=== PATIENT | male | born 2005 | race Caucasian/White ===

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

== ENCOUNTER 2024-04-23 22:41 | Emergency (ER) | payer MEDICAID, SELFPAY ==
[2024-04-23] VITALS (10 sets, daily range): BP systolic 104–125; BP diastolic 61–69; PULSE 65–82; RESP 14–22; TEMP 36.6; O2SAT 97–99
--- NOTE | 2024-04-23 22:45 | DI.RAD_ITS ---
Exam(s) XR CHEST 2V PA LATERAL EXAM: XR CHEST 2V PA LATERAL CLINICAL HISTORY: chest pain. TECHNIQUE: 2D digital imaging was performed. COMPARISON: No exams were available for comparison FINDINGS: 2 views: Heart size is normal. The mediastinum is not widened. Lungs are clear. No infiltrates nor pleural effusions. IMPRESSION: No acute pulmonary findings. DATA REPOSITORY: RADIATION DOSE DELIVERED:
--- NOTE | 2024-04-23 22:45 | RT.EKG_ITS ---
APPROVED REPORT Exam: Resting ECG Reason for Exam: chest pain Patient Location: E HR:67 bpm ECG Measurements Heart Rate 67 AXIS NC 189 P 50 QRSd 83 QRS 66 QT 394 T 45 QTc 416 Conclusion Sinus rhythm... V-rate 60- [address] segment or t wave abnormalities to suggest occlusive KS
--- NOTE | 2024-04-23 23:07 | ED.GENADUL_ITS ---
Discharge Plan Disposition Patient Disposition: Home Condition: Good Discharge Details Clinical Impression: Chest pain [facility] Provider: Apple Harris Home Meds and New Rx's Prescriptions: No Action No Known Home Meds Discharge Instructions Instructions: Chest Pain, Adult ED Additional Instructions: Tylenol and ibuprofen over the counter for pain; follow the directions on the bottle. Call your primary care doctor on Friday to schedule an appointment for early next week to followup on your visit here. At that visit mention that your potassium was slightly slow. Return to the emergency department for new or worsening symptoms including fever, new/different/worse chest pain, difficultly breathing, feeling like you are going to pass out, or if you have any other concerns. HPI General Mode of arrival: ambulatory . Date/Time Provider Initiated Documentation: 04/23/24 22:50 . Limitations to Documentation: no limitations . Information obtained by: patient . HPI Narrative: 19yo previously healthy male presenting for right sided chest pain. Symptoms started about 6 hours ago after he went for a run. Have been constant since then but waxing and waning in severity. Pain is dull, moderate, and worse with deep breathing. It does not radiate. Nothing seems to make it better. Some shortness of breath earlier right after the pain started that lasted about 5 minutes, but not currently. He is otherwise in his usual state of health with no fevers, chills, rash, nausea, vomiting, abdominal pain, flank pain, dysuria, hematuria, or other concerns. Related Data Home Medications ?Medication ?Instructions ?Recorded ?Confirmed Unknown [No Known Home Meds] 04/23/24 04/23/24 Allergies Allergy/AdvReac Type Severity Reaction Status Date / Time No Known Allergies Allergy Unverified 04/23/24 22:50 General Stated Complaint: Chest Pain MOY: 3 Review of Systems Narrative: see HPI Exam Narrative Exam Narrative: General: Alert, well appearing, well nourished, in no acute distress. Head: Normocephalic, atraumatic Neck: Trachea midline, ?Neck supple. Cardiac: ?RRR, no murmurs appreciated Resp: No respiratory distress. CTAB. Abd: ?Soft, non-distended, nontender. Negative Islas's. : ?No suprapubic tenderness. Extremities: ?No deformities.? No peripheral edema. Neurologic: GCS 15. ? Moves all extremities freely against gravity Course Vital Signs Vital signs: Vital Signs Temperature 36.6 C 04/23/24 22:47 Pulse 73 04/23/24 22:47 Respiratory Rate 16 04/23/24 22:47 Blood Pressure 104/61 04/23/24 22:47 Pulse Oximetry 98 04/23/24 22:47 Temperature 36.6 C 04/23/24 22:47 Pulse 73 04/23/24 22:47 Respiratory Rate 16 04/23/24 22:47 Respiratory Effort Normal, Non-Labored 04/23/24 22:49 Blood Pressure 104/61 04/23/24 22:47 Blood Pressure Position Sitting 04/23/24 22:47 Pulse Oximetry 98 04/23/24 22:47 Oxygen Delivery Method Room Air 04/23/24 22:47 Oxygen Flow Rate 0 04/23/24 22:47 Pain Level 6 04/23/24 22:47 Medical Decision Making 19yo previously healthy male presenting for right sided chest pain, waxing and waning in severity for the past 6 hours, onset after a run. Mild SOB at onset, not currently. There is a pleurtic component to the pain. No family history of early cardiac disease or sudden unexpected . Vital signs reassuring on arrival, benign physical exam. No RUQ tenderness to suggest cholecystitis/choledocoliathias/gallbladder pathology. -Tylenol for pain -EKG NSR, appropriate intervals, no ST segment or T wave abnormalities to suggest occlusive KS. -CXR independently reviewed, no focal pneumonia or pneumothorax on my view, agree with radiology read below. -Labs reviewed as below, CBC with no leukocytosis or anemia, CMP reassuring with no transaminitits, mild hypokalemia (oral replacement ordered), dimer negative, troponin negative in the setting of 6+ hours of constant pain; would not further pursue ACS/trend troponin/etc. Will add toradol. On reassessment he reports pain has improved. Vital signs remain reassuring. Discharged home; discharge instructions and return precautions were reviewed with patient who verbalized understanding. All questions were answered and he is in full agreement with the plan. Imaging Data Radiologic Study: Imaging: X-Ray Radiologist's impression: IMPRESSION: No acute findings. Lab Data Lab results reviewed: Yes I reviewed the patient's lab results. Labs: Laboratory Tests Range/Units 04/23/24 23:00 WBC (4.4-10.8) 10^3/uL 10.27 RBC (4.36-5.78) 10^6/uL 4.38 Hgb (13.5-17.5) g/dL 13.8 Hct (40.0-50.0) % 39.0 L MCV (80-95) fL 89 MCH (27.0-33.0) pg 31.5 MCHC (32.0-36.0) % 35.4 RDW (11.8-14.1) % 12.3 Plt Count (130-400) 10^3/uL 239 MPV (8.0-11.0) fL 9.8 Immature Gran % % 0.3 Neutrophils % % 59.9 Lymphocytes % % 31.2 Monocytes % % 6.4 Eosinophils % % 1.4 Basophils % % 0.8 Nucleated RBC % (0.0-0.3) % 0.0 Absolute Neutrophils (1.2-6.7) 10^3/uL 6.16 Absolute Lymphocytes (1.2-3.4) 10^3/uL 3.20 Absolute Monocytes (0.1-0.8) 10^3/uL 0.66 Absolute Eosinophils (0.0-0.7) 10^3/uL 0.14 Absolute Basophils (0.0-0.2) 10^3/uL 0.08 D-Dimer (<500) ng/mlFEU 147 Sodium (136-145) mmol/L 140 Potassium (3.5-5.1) mmol/L 3.2 L Chloride (98-107) mmol/L 104 Carbon Dioxide (21.0-32.0) mmol/L 24.5 Anion Gap (3-11) mmol/L 11.5 H BUN (7-18) mg/dL 15 Creatinine (0.70-1.30) mg/dL 0.8 Est GFR (CKD-EPI 2020) (mL/min/1.73m2) 129.93 Glucose (74-106) mg/dL 103 Calcium (8.5-10.1) mg/dL 8.6 Total Bilirubin (0.2-1.0) mg/dL 0.35 AST (15-37) U/L 23 ALT (16-63) U/L 28 Alkaline Phosphatase (46-116) U/L 78 Troponin I (< or =60) ng/L < 50 Total Protein (6.4-8.2) g/dL 7.4 Albumin (3.4-5.0) g/dL 4.0 Lipase (16-77) U/L 33 Quality:SDOH Health Related Social Needs: No Data to Display PFSH All Active Problems (Updated 04/24/24 @ 00:05 by Apple Harris MD) Chest pain (Acute) Overdose of sertraline (Acute) Depression (Chronic) Suicide attempt (Acute) Suicidal ideation (Acute) Social History Smoking/Tobacco Use Status: Never Smoking risk assessment performed?: Yes Alcohol Intake: never Drug use: Occasionally Substance use type: former substance user and marijuana Housing: house Do you feel safe at home: Yes Do you feel safe in your relationship?: Yes
[2024-04-23 23:12] LABS: Abs Immature Grans 0.03 10^3/uL (0.0-0.06); Absolute Basophil Count 0.08 10^3/uL (0.0-0.2); Absolute Eosinophil Count 0.14 10^3/uL (0.0-0.7); Absolute Monocyte Count 0.66 10^3/uL (0.1-0.8); Absolute Neutrophil Count 6.16 10^3/uL (1.2-6.7); Basophils % 0.8 %; Eosinophils % 1.4 %; HGB 13.8 g/dL (13.5-17.5); Immature Grans % 0.3 %; Lymphocytes % 31.2 %; MCH 31.5 pg (27.0-33.0); MCHC 35.4 % (32.0-36.0); MCV 89 fL (80-95); MPV 9.8 fL (8.0-11.0); Monocytes % 6.4 %; Neutrophils % 59.9 %; Platelet Count 239 10^3/uL (130-400); RBC 4.38 10^6/uL (4.36-5.78); RDW 12.3 % (11.8-14.1); RDW-SD 39.9 fL; WBC 10.27 10^3/uL (4.4-10.8)
[2024-04-23 23:33] LABS: ALT 28 U/L (16-63); AST 23 U/L (15-37); Alkaline Phosphatase 78 U/L (46-116); Anion Gap 11.5 mmol/L (3-11); BUN 15 mg/dL (7-18); Bilirubin, Total 0.35 mg/dL (0.2-1.0); CO2 24.5 mmol/L (21.0-32.0); CREATININE 0.8 mg/dL (0.70-1.30); Calcium 8.6 mg/dL (8.5-10.1); Chloride 104 mmol/L (98-107); Estimated GFR 129.93 (mL/min/1.73m2); Glucose 103 mg/dL (74-106); Lipase 33 U/L (16-77); Potassium 3.2 mmol/L (3.5-5.1); Sodium 140 mmol/L (136-145); Total Protein 7.4 g/dL (6.4-8.2); Troponin I < 50 ng/L (< or =60)
[2024-04-23] MEDS: Acetaminophen 325 MG TAB 650 MG PO (23:35)
[2024-04-23 23:49] LABS: D-Dimer 147 ng/mlFEU (<500)
[2024-04-24] VITALS (8 sets, daily range): BP systolic 125; BP diastolic 72; PULSE 64–73; RESP 16–22; O2SAT 97–98
[2024-04-24] MEDS: Potassium Chloride Liquid 20 MEQ PKT PO (00:13)
[2024-04-24] MEDS: Ketorolac 30 MG/ML VIAL 15 MG IVP (00:13)
--- NOTE | 2024-04-24 00:58 | DI.VRAD_ITS ---
PROCEDURE INFORMATION: Exam: XR Chest Exam date and time: 04/23/2024 11:16 PM Age: 19 years old Clinical indication: Pain; Chest pressure TECHNIQUE: Imaging protocol: Radiologic exam of the chest. Views: 2 views. COMPARISON: CT ABDOMEN PELVIS W 09/13/2019 6:17 PM FINDINGS: Lungs: Unremarkable. No consolidation. Pleural spaces: Unremarkable. No pleural effusion. No pneumothorax. Heart/Mediastinum: Unremarkable. No cardiomegaly. Bones/joints: Unremarkable. IMPRESSION: No acute findings. Dictated and Authenticated by: Nadeem Cormier MD. Ordering:SAVANAH Chiu MD
== END 2024-04-24 01:07 | disposition home or self-care (01) ==
PROVIDERS: Emergency Provider Student in an Organized Health Care Education/Training Program; PCP Internal Medicine
DX: R07.9 Chest pain, unspecified (principal)
CPT/HCPCS: 80053; 83690; 93005; 96374; 99285; 71046; 84484; 85025; 85379; 93010; 99284; J1885

== ENCOUNTER 2024-11-18 16:06 | Emergency (ER) | payer MEDICAID, SELFPAY ==
[2024-11-18 16:14] VITALS: BP 132/80; PULSE 99; RESP 20; TEMP 36.7; O2SAT 99
--- NOTE | 2024-11-18 16:18 | ED.GENADUL_ITS ---
Discharge Plan Discharge Details Chief Complaint: PsychEval Primary Care Provider: [facility] ED Provider: Kayleigh Bain Home Meds and New Rx's Prescriptions: No Action No Known Home Meds HPI General Mode of arrival: ambulatory . Date/Time Provider Initiated Documentation: 11/18/24 16:10 . Limitations to Documentation: no limitations . Information obtained by: patient, RN notes reviewed and old records reviewed . HPI Narrative: 19-year-old male presents to the ER with a chief complaint of paranoia, hearing people paddling him he also told triage nurse that he is being evaluated by a member of the diversional therapist's assistant team 6. He reports that he would like to join the [email or web address] and he stopped taking his Prozac in August 2022 in order to join. He denies any thoughts of wanting to harm himself or others at this time. He denies any d rugs alcohol, does not appear to be under the influence of any substances. He does have a history of depression, suicide attempt by overdose, he does endorse occasional marijuana couple weeks ago. Related Data Home Medications ?Medication ?Instructions ?Recorded ?Confirmed Unknown [No Known Home Meds] 04/23/24 11/18/24 Allergies Allergy/AdvReac Type Severity Reaction Status Date / Time No Known Allergies Allergy Verified 11/18/24 16:19 General Stated Complaint: PsychEval MOY: 2 Review of Systems All systems reviewed & are unremarkable except as noted in HPI and below Neurologic Neurologic: Reports behavioral changes Psychiatric Psychiatric: Reports anxiety, Reports behavioral changes and Reports auditory hallucinations Exam Narrative Exam Narrative: Constitutional: Alert and oriented x3. Appears stated age. Normal body habitus. Disheveled. Head: Normocephalic, no trauma. Eyes: Pupils PERRL, Red reflex noted, EOM's intact. Eyelids symmetrical without lesions, discharge, or swelling. ENT: Bilateral TM's WNL, External ear normal to inspection, no mastoid TTP, swelling, or erythema, Nasal turbinates WNL, no nasal discharge. Normal dentition, Posterior pharynx WNL, no exudate. Chest: RRR, Normal S1, S2, distal pulses intact. Resp: Lungs clear to auscultation bilaterally, no wheezes, rales, or rhonchi. Abdomen: Soft, non-distended, Normoactive bowel sounds all 4 quads. Musculoskeletal: Normal gait, Moves all 4 extremities without difficulty. Skin: No suspicious rashes or lesions. Capillary refill less than 2 sec. Neurologic: Cranial nerves II-XII intact. Alert and oriented x 3. Motor: No deficits noted. Sensory: Intact bilaterally all 4 extremities. Hematologic/Lymphatic: No ecchymosis, no lymphadenopathy. Psychiatric: See below Psych Appearance: disheveled Speech and Movement: speech and movement normal Mood: euphoric mood Affect: normal affect Attitude: cooperative Thought Process: normal Thought Content: hallucinations auditory and phobias Insight: fair Judgment: fair Course Vital Signs Vital signs: Vital Signs Temperature 36.7 C 11/18/24 16:14 Pulse 99 H 11/18/24 16:14 Respiratory Rate 20 11/18/24 16:14 Blood Pressure 132/80 11/18/24 16:14 Pulse Oximetry 99 11/18/24 16:14 Temperature 36.7 C 11/18/24 16:14 Temperature Source Tympanic 11/18/24 16:14 Pulse 99 H 11/18/24 16:14 Respiratory Rate 20 11/18/24 16:14 Blood Pressure 132/80 11/18/24 16:14 Blood Pressure Position Sitting 11/18/24 16:14 Pulse Oximetry 99 11/18/24 16:14 Oxygen Delivery Method Room Air 11/18/24 16:14 Oxygen Flow Rate 0 11/18/24 16:14 Pain Level 0 11/18/24 16:14 Medical Decision Making 19-year-old male presents to the ER with a chief complaint of paranoia, hearing people paddling him he also told triage nurse that he is being evaluated by a member of the diversional therapist's assistant team 6. He reports that he would like to join the [email or web address] and he stopped taking his Prozac in August 2022 in order to join. He denies any thoughts of wanting to harm himself or others at this time. He denies any drugs alcohol, does not appear to be under the influence of any substances. He does have a history of depression, suicide attempt by overdose, he does endorse occasional marijuana couple weeks ago. He does deny any suicidal ideation in triage initially. UDS ordered, smart medical clearance form filled out. Patient does have a history of overdose in 2021. He does not appear to be under the influence at this time. Mental health evaluation ordered. Patient is here with an [facility] liaison. UDS is negative. Discussed patient case in details with in the [facility]. Spoke with Gail with [facility], they are going to seek voluntary inpatient placement at this time however notified by liaison that if patient tries to leave they need to be contacted and they will seek involuntary placement. At this time patient has remained calm and cooperative. Care is to be handed off to oncoming provider Dr. Bang ER attending pending voluntary inpatient placement. Discussed patient case and plan with him he verbalized understanding. Patient has not required any medications at this time. However if patient expresses the desire to leave [facility] would like to be notified and they will pursue involuntary placement. This text was generated using [employer] system, please disregard any oddities of phrase or misspellings. Medical Records Medical records reviewed: Yes I reviewed the patient's medical records. Lab Data Lab results reviewed: Yes I reviewed the patient's lab results. Labs: Laboratory Tests Range/Units 11/18/24 16:44 Urine Opiates Screen (Negative) Negative Urine Methadone Screen (Negative) Negative Ur Barbiturates Screen (Negative) Negative Ur Tricyclics Screen (Negative) Negative Ur Amphetamines Screen (Negative) Negative U Benzodiazepines Scrn (Negative) Negative Urine Cocaine Screen (Negative) Negative Ur THC Screen (Negative) Negative Quality:SDOH Health Related Social Needs: Health related social needs housing instability, house d, with risk of homelessness (Z59.811), food insecurity (Z59.41), material hardship(utilities) (Z59.12), transportation insecurity (Z59.82), problems related to jarrod sing/economic circumstances (Z59.89), problems finding work (Z56.9), problems with daily activities (Z73.9), feeling lonely/isolated (Z60.8) PFSH All Active Problems Overdose of sertraline (Acute) Depression (Chronic) Suicide attempt (Acute) Suicidal ideation (Acute) Social History Smoking/Tobacco Use Status: Never Smoking risk assessment performed?: Yes Alcohol Intake: never Drug use: Occasionally Substance use type: former substance user and marijuana Housing: house Do you feel safe at home: Yes Do you feel safe in your relationship?: Yes
[2024-11-18 17:07] LABS: *AMPHETAMINES SCREEN URINE Negative (Negative); *BARBITURATES SCREEN URINE Negative (Negative); *BENZODIAZEPINES SCREEN URINE Negative (Negative); Cannabinoids THC Negative (Negative); Cocaine Screen,Urine Negative (Negative); METHADONE URINE SCREEN Negative (Negative); OPIATES URINE SCREEN Negative (Negative)
[2024-11-18 17:10] LABS: Tricyclic Antidepressants Negative (Negative)
[2024-11-19 08:01] VITALS: BP 109/67; PULSE 71; RESP 18; TEMP 36.1; O2SAT 100
--- NOTE | 2024-11-19 09:25 | PDOC.CMSAFE ---
Date of service: 11/19/24 Time of Service: 09:26 Care Management Safety Plan Status Status: Voluntary Reason for Wait Reason for Wait: Assessment/Screening Safety Plan Safety Plan: VOLUNTARY FOR INPATIENT PSYCHIATRIC STABILIZATION.? Patient is appropriate in all interactions since arriving at [facility]; Pt has demonstrated appropriate coping and communication skills, has articulated his or her needs and concerns and is fully engaged during staff interactions. Safety plan has been established with patient, and care team, to adhere to patient goals, identify restrictions based on behavioral status, address nutrition, and determine allowed personal belongings, tools for hygiene and personal care. Determine level of activity including ambulation, level of supervision, visitors, and determine privileges based on behaviors and level of engagement by pt. SAFETY PLAN: 1. Will remain on suicide precautions, in paper clothes 2. Will remain in room under direct supervision of one-on-one staff at all times provided by [employer]; LARRY, VISUAL COMMUNICATIONS INSTRUCTOR information services manager. 3. May have paper cups, plates, finger foods as well as a cardboard spoon with which to eat meals. 4. Follow [facility] Management of the Admitted Behavioral Health Patient policy. 5. Comfort bath system, shower permitted with escort at RN discretion. 6. Personal belongings-soft items permitted at RN discretion. 7. Visitors-none at this time. 8. Activities: soft cart items approved per RN discretion. 9.? Bathroom privileges with escort in the ED. 10. Phone: limited to cordless phone at RN discretion. Due to VOLUNTARY status, if patient wishes to leave [facility], staff will contact [facility] Crisis Screener ([phone]) and [employer] ([phone]) as soon as possible. In the event of elopement, notify [facility] Police ([phone]). Patient is currently voluntarily at [facility] and seeking inpatient admission when a bed becomes available. [facility] Frontline Charge Attendant will continue seeking placement. Please contact the Inspector Toys Supervisor [employer] ([phone]) and [facility] Charge Attendant ([phone]) for any needed changes in the Safety Plan. Safety plan has been provided to interdepartmental care team.
--- NOTE | 2024-11-19 09:27 | PDOC.CMPRO ---
Date of service: 11/19/24 Time of Service: 09:27 Care Management Progress Note Progress Note Text Progress Note Text: Jesús was brought to the ED yesterday when he was found wandering the streets by his [facility] registered nurse hh case manager. Jesús lives at home with his parents, in a reportedly terrible environment. Jesús likes to work to get out of his house. Work was cancelled yesterday due to weather, and Jesús did not return home. CM spoke with RN, and Jesús has been cooperative and compliant with staff. He is awaiting assessment by [facility]. Discharge Potential Discharge Needs: Other (MH evaluation by [facility]) Anticipated Barriers to Discharge: Bed availability Patient/Family Education Needs: Review discharge instructions, discuss [facility] Transportation: EMS (as coordinated by Rn supervisor belt and link assembly) Plan: Jesús will be evaluated by [facility] today. His disposition will be dependent on that evaluation. CM will continue to follow. Services (Omit if N/A) Current Services: [facility] Status Status: Voluntary Social Determinants of Health Screening Social Determinants of Health last assessed: 11/19/24 Will the Patient Participate in the Screening?: Yes Do you worry about having a steady place to live?: yes What is your living situation today?: I do not have steady housing Problems where you live: no known problems In the past 12 months, have you had to go without electric, gas, oil or water in your home?: yes Have you or anyone in your house had to go without enough food to eat?: yes 1. Within the past 12 months, we worried whether our food would run out before we got money to buy more.: Sometimes true 2. Within the past 12 months, the food we bought just didn't last and we didn't have money to get more.: Sometimes true Referred to:: Other: Has lack of transportation kept you from medical appointments or from doing things needed for daily living?: yes Has anyone in your life made you feel unsafe or unsupported?: yes How hard is it for you to pay for the very basics like food, housing, medical care, and heating? Would you say it is:: Very hard Do you want help finding or keeping work or a job?: Yes, help keeping work If for any reason you need help with day-to-day activities such as bathing, preparing meals, shopping, managing finances, etc., do you get the help you need?: I could use a little more help How often do you feel lonely or isolated from those around you?: Sometimes Do you speak a language other than Romanian at home?: No Does the patient want assistance with any of the above?: Yes Health Related Social Needs Health related social needs: housing instability, housed, with risk of homelessness (Z59.811), food insecurity (Z59.41), transportation insecurity (Z59.82), material hardship(utilities) (Z59.12), problems related to housing/economic circumstances (Z59.89), problems finding work (Z56.9), problems with daily activities (Z73.9) and feeling lonely/isolated (Z60.8)
--- NOTE | 2024-11-19 14:02 | PDOC.MHPN2 ---
Date of service: 11/19/24 Time of Service: 11:00 PHQ-9 Over the last 2 weeks, how often have you been bothered by any of the following problems? 1. Little interest or pleasure in doing things: not at all 2. Feeling down, depressed, or hopeless: not at all 3. Trouble falling or staying asleep, or sleeping too much: not at all 4. Feeling tired or having little energy: not at all 5. Poor appetite or overeating: not at all 6. Feeling bad about yourself - or that you are a failure or have let yourself and your family down: several days 7. Trouble concentrating on things, such as reading the newspaper or watching television: not at all 8. Moving or speaking so slowly that other people could have noticed? - Or the opposite - being so fidgety or restless that you have been moving around a lot more than usual: not at all 9. Thoughts that you would be better off or of hurting yourself in some way: not at all Total score: 1 Source: Developed by Drs. Kobi Joseph, Meredith Curtis, Grabiel Richards and colleagues, with an educational lakshmi from [employer]. Suicide Severity Rate CSSRS Have you wished you were or wished you could go to sleep and not wake up?: No Have you actually had any thoughts of killing yourself?: No CSSRS2 Have you been thinking about how you might do this?: No Have you had these thoughts and had some intention of acting on them?: No Have you started to work out or worked out the details of how to kill yourself? Do you intend to carry out this plan?: No CSSRS3 Have you ever done anything, started to do anything or prepared to do anything to end your life?: No CSSRS4 Was this within the past three months?: No Screening Score Total Score: 0 Screening: Negative Mental Health Emergency Note Release [facility] release signed:: Yes Reason for Visit hallucinations/delusional behaviors In the last 2 weeks has the pt presented for ES prior to today?: No Client Information Client is: Adult Outpatient Well Housed: Yes Non Suicidal Self Injury Current: No History: No Safety Risk/Harm to Self or Others Current Ideation to Harm Self or Others: No Risk: Does risk to harm exist?: No Risk: Low Risk Duty to warn indicated: No Asssessment/Mental Status Appearance: Other Attitude: Cooperative and Friendly Behavior: Unremarkable Speech: Normal Affect: Normal Mood: Euthymic Thought process: Loose associations and Poverty of content Hallucinations: yes, Command Delusions: yes, Persectory/Paranoid and Bizarre Attention: Unremarkable Perception: Not impaired Orientation: Fully orientated Memory: Intact Insight: Poor Judgement: Poor Neurovegetative Symptoms Sleep: Decrease Appetitie: Disordered Interests: No change Energy: No change Libido: Not applicable Substance Use: Other (none) Drug Issues: Other (marijuana few times a month) Additional Issues: Assaultive/Threatening Behavior: No Medical Concerns: No Client engaged in active self harm w/weapon: No Threatening to run away: No Child reported abuse/neglect: No Voluntarily presenting for services: Yes Domestic violence is a concern: No Extreme Psychosis or extreme behavior is present: No Impression Client is awaiting to go inpatient due to Hallucinations and delusional thought Resources Reosurces reviewed and given:: 8 and [facility] Plan/Disposition Recommended Disposition: Hospitalization facilities contacted. Plan: Client will be going inpatient to [facility] Person reported agreement to plan: Yes Reports/communication Outcome discussed with: ED/Personnel
--- NOTE | 2024-11-19 16:30 | PDOC.CMDIS ---
Date of service: 11/19/24 Time of Service: 16:30 LACE Index Scoring Tool Questions: Length of Stay (in days): 1 Was the patient admitted via the E.D.?: Yes E.D. Visits: 1 Answers: Total Score: 5 Risk of Readmission: Low Risk Care Management Discharge Plan Reason for Hospitalization: hallucinations and delusional behaviors Discharge Plan: Jesús was transferred to [facility] for voluntary inpatient treatment. Transport was coordinated by RN supervisor garage. SDOH Health Related Social Needs: Health related social needs housing instability, housed, with risk of homelessness (Z59.811), food insecurity (Z59.41), transportation insecurity (Z59.82), material hardship(utilities) (Z59.12), problems related to housing/economic circumstances (Z59.89), problems finding work (Z56.9), problems with daily activities (Z73.9), feeling lonely/isolated (Z60.8) Disposition Disposition: [place] Transport via of:
== END 2024-11-19 13:59 ==
PROVIDERS: Registered Nurse Emergency; Emergency Provider Student in an Organized Health Care Education/Training Program; PCP Internal Medicine
DX: F22 Delusional disorders (principal); R45.851 Suicidal ideations; F32.A Depression, unspecified
CPT/HCPCS: 00123; 36415; 80307; 96127; 99285

== ENCOUNTER 2025-01-05 20:53 | Emergency (ER) | payer MEDICAID, SELFPAY ==
[2025-01-05 20:55] VITALS: BP 126/84; PULSE 79; RESP 16; TEMP 37.1; O2SAT 98
--- NOTE | 2025-01-05 21:06 | ED.GENADUL_ITS ---
Discharge Plan Discharge Details Chief Complaint: PsychEval Primary Care Provider: Lindsay Hong ED Provider: [place] Home Meds and New Rx's Prescriptions: No Action No Known Home Meds HPI General Date/Time Provider Initiated Documentation: 01/05/25 20:54 . HPI Narrative: 19 year-old male presents to ED today by PD custody with a chief complaint of suicidal ideation, with specific plan of going to his work and shooting himself in the head with a nail gun, after getting into a fight with his family whom he cohabitates with with onset this evening. Patient has history of suicidality going back to at least 2021 with an attempt by medication overdose. Quality described as acute on chronic suicidality, with ETOH use tonight, no radiation to fever, chest pain, abdominal pain, head pain, LOC, acute injury, pill ingestion. Severity is described as moderate. Palliating factors include nothing specific attempted- patient states he doesn't have any positive factors in his life anymore that keep him from suicidal ideations. Provoking factors include nothing specific. Events leading up to the incident/Associated Symptoms: Patient stopped taking his medications 2 weeks ago, was on Abilify. Patient not anticoagulated. Related Data Home Medications ?Medication ?Instructions ?Recorded ?Confirmed Unknown [No Known Home Meds] 04/23/24 11/18/24 Allergies Allergy/AdvReac Type Severity Reaction Status Date / Time No Known Allergies Allergy Verified 01/05/25 21:07 General Stated Complaint: PsychEval MOY: 2 Review of Systems All systems reviewed & are unremarkable except as noted in HPI and below Exam Narrative Exam Narrative: GENERAL APPEARANCE: Well-nourished, non-toxic, awake and alert, atraumatic, no acute distress. SKIN: Warm, pink, dry, intact, without rashes/lesions/ulcerations. HEAD: Normocephalic, atraumatic, normal hair distribution for gender/age. EYES: Normal conjunctiva, no exudates on lids/lashes. ENT: Nares patent, no circumoral cyanosis, no facial swelling NECK: Supple, trachea midline, painless cervical ROM. LUNGS/CHEST: Non-labored respirations, normal A/P diameter, symmetrical expansion, no chest wall deformity HEART (CV/PV): No peripheral edema, no JVD. ABDOMEN: Soft, non-distended, no guarding. MSK: Normal ROM, no swelling/deformity to bilateral UEs or LEs, moving all extremities without weakness, no cyanosis, spine midline without tenderness, normal curvature. NEURO: Mental Status AAOx4 - alert to person, place, time, events No facial droop, no forehead involvement. Motor: No focal weakness - strength 5/5 in bilateral UEs and LEs, proximal and distal, symmetric. Sensory: sensation intact to light touch globally. Gait normal: patient ambulated without ataxia into ED room. PSYCH: dysthymic, cooperative, pleasant, appropriate speech, suicidal Course Vital Signs Vital signs: Vital Signs Temperature 37.1 C 01/05/25 20:55 Pulse 79 01/05/25 20:55 Respiratory Rate 16 01/05/25 20:55 Blood Pressure 126/84 01/05/25 20:55 Pulse Oximetry 98 01/05/25 20:55 Temperature 37.1 C 01/05/25 20:55 Pulse 79 01/05/25 20:55 Respiratory Rate 16 01/05/25 20:55 Blood Pressure 126/84 01/05/25 20:55 Pulse Oximetry 98 01/05/25 20:55 Medical Decision Making This dictation utilizes [id number] dictation software and may contain unedited grammatical errors. 19 year-old male presents to ED today by PD custody with a chief complaint of suicidal ideation, with specific plan of going to his work and shooting himself in the head with a nail gun, after getting into a fight with his family whom he cohabitates with with onset this evening. Patient has history of suicidality going back to at least 2021 with an attempt by medication overdose. Quality described as acute on chronic suicidality, with ETOH use tonight, no radiation to fever, chest pain, abdominal pain, head pain, LOC, acute injury, pill ingestion. Severity is described as moderate. Palliating factors include nothing specific attempted- patient states he doesn't have any positive factors in his life anymore that keep him from suicidal ideations. Provoking factors include nothing specific. Events leading up to the incident/Associated Symptoms: Patient stopped taking his medications 2 weeks ago, was on Abilify. Patients' medical history: Suicidal ideation, attempted suicide by sertraline overdose. Family and social history: Works at a [employer], lives with his family who has a tenuous relationship with the patient, endorses acute alcohol intake tonight, per PD a SHIRLEY of 0.16. Pertinent exam findings / vital signs include benign cardiopulmonary status, neuro intact, answering questions appropriately, mildly intoxicated, no acute injuries or deformities, endorses suicidal ideation without homicidal ideation. Differential / pathologies of concern include intoxication, suicidal ideation, mood disorder. Diagnostic studies of: -CBC, CMP, acetaminophen level, salicylate level, alcohol level, UDS, TSH, urinalysis. -CBC shows nonspecific leukocytosis -UA benign -CMP shows no actionable abnormality -TSH is very high at 14.2, T4 level pending -Alcohol level 6.8 ED Course: Patient is calm and cooperative, agreed to safety plan to maintain respectful interactions with staff, cleared for Zone B to metabolize alcohol until [facility] can evaluate. Patient signed out to oncoming provider Dr. Rachael Harris at shift change with pending [facility] evaluation. Disposition of Suicidal Ideation. Patient verbalized understanding of the plan and return to ED criteria and engaged in shared decision making. Medical Records Medical records reviewed: Yes I reviewed the patient's medical records. Lab Data Lab results reviewed: Yes I reviewed the patient's lab results. Labs: Laboratory Tests Range/Units 01/05/25 01/05/25 21:02 21:35 WBC (4.4-10.8) 10^3/uL 12.82 H RBC (4.36-5.78) 10^6/uL 4.92 Hgb (13.5-17.5) g/dL 15.7 Hct (40.0-50.0) % 45.6 MCV (80-95) fL 93 MCH (27.0-33.0) pg 31.9 MCHC (32.0-36.0) % 34.4 RDW (11.8-14.1) % 11.9 Plt Count (130-400) 10^3/uL 289 MPV (8.0-11.0) fL 9.6 Immature Gran % % 0.4 Neutrophils % % 76.3 Lymphocytes % % 15.1 Monocytes % % 6.3 Eosinophils % % 1.2 Basophils % % 0.7 Nucleated RBC % (0.0-0.3) % 0.0 Absolute Neutrophils (1.2-6.7) 10^3/uL 9.78 H Absolute Lymphocytes (1.2-3.4) 10^3/uL 1.94 Absolute Monocytes (0.1-0.8) 10^3/uL 0.81 H Absolute Eosinophils (0.0-0.7) 10^3/uL 0.15 Absolute Basophils (0.0-0.2) 10^3/uL 0.09 Sodium (136-145) mmol/L 144 Potassium (3.5-5.1) mmol/L 3.6 Chloride (98-107) mmol/L 105 Carbon Dioxide (21.0-32.0) mmol/L 27.6 Anion Gap (3-11) mmol/L 11.4 H BUN (7-18) mg/dL 19 H Creatinine (0.70-1.30) mg/dL 1.1 Est GFR (CKD-EPI 2020) (mL/min/1.73m2) 98.56 Glucose (74-106) mg/dL 64 L Calcium (8.5-10.1) mg/dL 9.6 Total Bilirubin (0.2-1.0) mg/dL 0.4 AST (15-37) U/L 28 ALT (16-63) U/L 28 Alkaline Phosphatase (46-116) U/L 144 H Total Protein (6.4-8.2) g/dL 8.5 H Albumin (3.4-5.0) g/dL 4.5 TSH (0.36-3.74) uIU/mL 14.21 H Urine Color (Yellow) Yellow Urine Clarity (Clear) Clear Urine pH (5-8) 5.5 Ur Specific [place] (1.005-1.025) 1.020 Urine Protein (Neg-Trace) mg/dL Trace Urine Ketones (Negative) mg/dL Negative Urine Blood (Negative) Negative Urine Nitrite (Negative) Negative Urine Bilirubin (Negative) Negative Urine Urobilinogen (Up to 0.2) mg/dL 0.2 Ur Leukocyte Esterase (Negative) Negative Urine Glucose (Negative) mg/dL Negative Ethyl Alcohol (<10) mg/dL 6.8 Quality:SDOH Health Related Social Needs: Health related social needs housing instability, house d, with risk of homelessness (Z59.811), food insecurity (Z59.41), transportation insecurity (Z59.82), material hardship(utilities) (Z59.12), problems related to housing/economic circumstances (Z59.89), problems finding work (Z56.9), problems with daily activities (Z73.9), feeling lonely/isolated (Z60.8) PFSH All Active Problems Overdose of sertraline (Acute) Depression (Chronic) Suicide attempt (Acute) Suicidal ideation (Acute) Social History Smoking/Tobacco Use Status: Never Smoking risk assessment performed?: Yes Alcohol Intake: never Drug use: Occasionally Substance use type: former substance user and marijuana Housing: house Do you feel safe at home: Yes Do you feel safe in your relationship?: Yes PAWSS Have you Been Recently Intoxicated or Drunk Within the Last 30 days?: No Have you Ever Experienced Previous Episodes of Alcohol Withdrawal?: No Have you ever Experienced Withdrawal Seizures?: No Have you ever Experienced Delirium Tremens(DT)s?: No Have you ever undergone Alcohol Rehabilitation Treatment (i.e, inpt ot outpatient treatment programs)?: No Have you ever Experienced Blackouts?: No Have you ever Combined Alcohol with other Downers within the last 90 days?: No Have you ever Combined Alcohol with any other Substance of Abuse during the last 90 days?: No Positive Blood Alcohol level on Presentation? [PCS.BAL]: No Evidence of Increased Autonomic Activity (i.e. HR>120, tremor, sweating, agitation, nausea)?: No Result: 0
[2025-01-05 21:43] LABS: Abs Immature Grans 0.05 10^3/uL (0.0-0.06); Absolute Basophil Count 0.09 10^3/uL (0.0-0.2); Absolute Eosinophil Count 0.15 10^3/uL (0.0-0.7); Absolute Monocyte Count 0.81 10^3/uL (0.1-0.8); Basophils % 0.7 %; Eosinophils % 1.2 %; HCT 45.6 % (40.0-50.0); HGB 15.7 g/dL (13.5-17.5); Immature Grans % 0.4 %; Lymphocytes % 15.1 %; MCH 31.9 pg (27.0-33.0); MCHC 34.4 % (32.0-36.0); MCV 93 fL (80-95); MPV 9.6 fL (8.0-11.0); Monocytes % 6.3 %; Neutrophils % 76.3 %; Platelet Count 289 10^3/uL (130-400); RBC 4.92 10^6/uL (4.36-5.78); RDW 11.9 % (11.8-14.1); RDW-SD 41.3 fL; WBC 12.82 10^3/uL (4.4-10.8)
[2025-01-05 21:44] LABS: Absolute Lymphocyte Count 1.94 10^3/uL (1.2-3.4); Absolute Neutrophil Count 9.78 10^3/uL (1.2-6.7)
[2025-01-05 21:49] LABS: Bilirubin Negative (Negative); Blood Negative (Negative); Clarity Clear (Clear); Glucose Negative (Negative); Ketones Negative (Negative); Leukocyte Esterase Negative (Negative); Nitrite Negative (Negative); Urobilinogen 0.2 mg/dL (Up to 0.2); pH 5.5 (5-8)
[2025-01-05 22:08] LABS: *AMPHETAMINES SCREEN URINE Negative (Negative); *BARBITURATES SCREEN URINE Negative (Negative); *BENZODIAZEPINES SCREEN URINE Negative (Negative); Cannabinoids THC Negative (Negative); Cocaine Screen,Urine Negative (Negative); METHADONE URINE SCREEN Negative (Negative); OPIATES URINE SCREEN Negative (Negative)
[2025-01-05 22:08] LABS: ALT 28 U/L (16-63); AST 28 U/L (15-37); Albumin 4.5 g/dL (3.4-5.0); Alkaline Phosphatase 144 U/L (46-116); Anion Gap 11.4 mmol/L (3-11); BUN 19 mg/dL (7-18); Bilirubin, Total 0.4 mg/dL (0.2-1.0); CO2 27.6 mmol/L (21.0-32.0); CREATININE 1.1 mg/dL (0.70-1.30); Calcium 9.6 mg/dL (8.5-10.1); Chloride 105 mmol/L (98-107); ETHANOL BLOOD 6.8 mg/dL (<10); Estimated GFR 98.56 (mL/min/1.73m2); Glucose 64 mg/dL (74-106); Potassium 3.6 mmol/L (3.5-5.1); Sodium 144 mmol/L (136-145); TSH (W/Ref FT4) 14.21 uIU/mL (0.36-3.74); Total Protein 8.5 g/dL (6.4-8.2)
[2025-01-05 22:09] LABS: Tricyclic Antidepressants Negative (Negative)
[2025-01-05 22:12] LABS: Acetaminophen < 2 ug/mL (10-30); Salicylate < 2.8 mg/dL (<2.8)
[2025-01-05 22:24] LABS: FREE T4 1.01 ng/dL (0.76-1.46)
--- NOTE | 2025-01-05 23:40 | ED.PROG_ITS ---
Date of service: 01/05/25 Time of Service: 22:00 Medical Decision Making This patient was signed out to me. Please see previous notes for H&P and initial eval. In brief, 19yo M presenting with SI with plan to shoot himself with a nail gun. Signed out pending labs and [facility] eval. Labs reviewed as below, CBC with mild leukocytosis at 12 (nonspecific), CMP with borderline low blood sugar at 64 (patient given PO, subsequent fingerstick was 90), UA not infected, serum tox negative. TSH markedly elevated at 14 with free T4 normal at 1.01. Consistent with subclinical hypothyroidism. Patient denies any significant fatigue, cold intolerance, constipation, body aches, constipation. Does have depressive symptoms. With TSH >10, current recommendations favor treating. Discussed with patient; he would prefer to hold off on medication at this time and recheck labs which is not unreasonable; he has no history of HTN, HLD, CAD, and is young. I did suggest recheck no later than within one week to one month. [facility] evaluated patient; plan to re-eval in the morning. Will be signed out to oncoming physician, plan remains as above. Lab Data Lab results reviewed: Yes I reviewed the patient's lab results. Labs: Laboratory Tests Range/Units 01/05/25 01/05/25 01/05/25 21:02 21:35 21:35 WBC (4.4-10.8) 10^3/uL 12.82 H RBC (4.36-5.78) 10^6/uL 4.92 Hgb (13.5-17.5) g/dL 15.7 Hct (40.0-50.0) % 45.6 MCV (80-95) fL 93 MCH (27.0-33.0) pg 31.9 MCHC (32.0-36.0) % 34.4 RDW (11.8-14.1) % 11.9 Plt Count (130-400) 10^3/uL 289 MPV (8.0-11.0) fL 9.6 Immature Gran % % 0.4 Neutrophils % % 76.3 Lymphocytes % % 15.1 Monocytes % % 6.3 Eosinophils % % 1.2 Basophils % % 0.7 Nucleated RBC % (0.0-0.3) % 0.0 Absolute Neutrophils (1.2-6.7) 10^3/uL 9.78 H Absolute Lymphocytes (1.2-3.4) 10^3/uL 1.94 Absolute Monocytes (0.1-0.8) 10^3/uL 0.81 H Absolute Eosinophils (0.0-0.7) 10^3/uL 0.15 Absolute Basophils (0.0-0.2) 10^3/uL 0.09 Sodium (136-145) mmol/L 144 Potassium (3.5-5.1) mmol/L 3.6 Chloride (98-107) mmol/L 105 Carbon Dioxide (21.0-32.0) mmol/L 27.6 Anion Gap (3-11) mmol/L 11.4 H BUN (7-18) mg/dL 19 H Creatinine (0.70-1.30) mg/dL 1.1 Est GFR (CKD-EPI 2020) (mL/min/1.73m2) 98.56 Glucose (74-106) mg/dL 64 L Calcium (8.5-10.1) mg/dL 9.6 Total Bilirubin (0.2-1.0) mg/dL 0.4 AST (15-37) U/L 28 ALT (16-63) U/L 28 Alkaline Phosphatase (46-116) U/L 144 H Total Protein (6.4-8.2) g/dL 8.5 H Albumin (3.4-5.0) g/dL 4.5 TSH (0.36-3.74) uIU/mL 14.21 H Free T4 (0.76-1.46) ng/dL 1.01 Cancelled Urine Color (Yellow) Yellow Urine Clarity (Clear) Clear Urine pH (5-8) 5.5 Ur Specific [place] (1.005-1.025) 1.020 Urine Protein (Neg-Trace) mg/dL Trace Urine Ketones (Negative) mg/dL Negative Urine Blood (Negative) Negative Urine Nitrite (Negative) Negative Urine Bilirubin (Negative) Negative Urine Urobilinogen (Up to 0.2) mg/dL 0.2 Ur Leukocyte Esterase (Negative) Negative Urine Glucose (Negative) mg/dL Negative Salicylates (<2.8) mg/dL < 2.8 Urine Opiates Screen (Negative) Negative Urine Methadone Screen (Negative) Negative Acetaminophen (10-30) ug/mL < 2 Ur Barbiturates Screen (Negative) Negative Ur Tricyclics Screen (Negative) Negative Ur Amphetamines Screen (Negative) Negative U Benzodiazepines Scrn (Negative) Negative Urine Cocaine Screen (Negative) Negative Ur THC Screen (Negative) Negative Ethyl Alcohol (<10) mg/dL 6.8 Quality:SDOH Health Related Social Needs: Health related social needs housing instability, house d, with risk of homelessness (Z59.811), food insecurity (Z59.41), transportation insecurity (Z59.82), material hardship(utilities) (Z59.12), problems related to housing/economic circumstances (Z59.89), problems finding work (Z56.9), problems with daily activities (Z73.9), feeling lonely/isolated (Z60.8) Discharge Plan Discharge Details Chief Complaint: PsychEval Clinical Impression: Suicidal ideation, Hypothyroidism Primary Care Provider: Lindsay Hong ED Provider: Apple Harris Home Meds and New Rx's Prescriptions: No Action No Known Home Meds
--- NOTE | 2025-01-05 23:48 | PDOC.MHCN ---
Date of service: 01/05/25 Time of Service: 22:32 PHQ-9 Over the last 2 weeks, how often have you been bothered by any of the following problems? 1. Little interest or pleasure in doing things: more than half the days 2. Feeling down, depressed, or hopeless: more than half the days 3. Trouble falling or staying asleep, or sleeping too much: nearly every day 4. Feeling tired or having little energy: more than half the days 5. Poor appetite or overeating: several days 6. Feeling bad about yourself - or that you are a failure or have let yourself and your family down: nearly every day 7. Trouble concentrating on things, such as reading the newspaper or watching television: more than half the days 8. Moving or speaking so slowly that other people could have noticed? - Or the opposite - being so fidgety or restless that you have been moving around a lot more than usual: not at all 9. Thoughts that you would be better off or of hurting yourself in some way: several days Total score: 16 If you checked off any problems, how difficult have these problems made it for you to do your work, take care of things at home, or get along with other people?: not difficult at all PHQ-9 Results: Positive Source: Developed by Drs. Kobi Joseph, Meredith Curtis, Grabiel Richards and colleagues, with an educational lakshmi from [employer]. Suicide Severity Rate CSSRS Have you wished you were or wished you could go to sleep and not wake up?: No Have you actually had any thoughts of killing yourself?: Yes CSSRS2 Have you been thinking about how you might do this?: Yes Have you had these thoughts and had some intention of acting on them?: Yes Have you started to work out or worked out the details of how to kill yourself? Do you intend to carry out this plan?: Yes CSSRS3 Have you ever done anything, started to do anything or prepared to do anything to end your life?: Yes CSSRS4 Was this within the past three months?: Yes Screening Score Total Score: 6 Screening: Positive Mental Health Emergency Note Release [facility] release signed:: Yes Reason for Visit In the last 2 weeks has the pt presented for ES prior to today?: No Client Information Client is: [facility]: Yes Non Suicidal Self Injury Current: No History: No Safety Risk/Harm to Self or Others Current Ideation to Harm Self or Others: No Risk: Does risk to harm exist?: yes. Risk: Low Risk Duty to warn indicated: No Asssessment/Mental Status Appearance: Disheveled Attitude: Cooperative Behavior: Unremarkable Speech: Normal Affect: Cogruent with mood Mood: Irritable Thought process: Other Hallucinations: No Delusions: No Attention: Unremarkable Perception: Other (Client is medically cleared; however, technically still under the influence with a SHIRLEY of .016) Orientation: Fully orientated Memory: Intact Insight: Fair Judgement: Fair Neurovegetative Symptoms Sleep: Decrease Appetitie: No change Interests: Decrease Substance Use: Intoxication Do you use nicotine?: No Have you used substances in the last 7 days?: yes, ETOH this evening Impression Client is a 19-year-old single male. Client is known to [facility] ([facility]). Client has a history of inpatient hospitalization and recently was hospitalized for suicidal ideation (SI) in November 2024 ([facility]). Per hospital staff report, client was brought into the emergency room (ED) at [facility] by law enforcement after a family altercation. Client reports he had a few beers and his SHIRLEY at the hospital is currently still a .016. Per hospital report, client is medically cleared and able to complete an initial assessment. Law enforcement reports to hospital client is experiencing SI with intent and plan to shoot himself in the head with a nail gun at work. Client reports continued family relation issues and struggles within the home. This functional tester typewriters met with client via telehealth to complete a preliminary crisis assessment while client is currently in [facility] ED. Client is alert and oriented x4. Client presents with fair insight and judgement but observed to be in pre-contemplative stage with his current suicidal ideations. Although client identified plan and intent, when asked if he would act on it, he states I don't really know. This functional tester typewriters notes client is technically still under the influence of alcohol at this time which may impair his judgement or thought process. Client score a 16 on the PHQ-9 and a 16 on the social needs screening tool. The [facility]ST indicates that client currently has numerous home struggles attributing to his current state. Client reports he does not feel voluntary treatment is where he wants to go and states It didn't help too much last time Client reports he is on the fence about what next steps could look like. The plan is to have client remain in ED overnight and to have him reach a SHIRLEY of .00. Although client is technically medically cleared, due to his wavering thought process on next steps, this functional tester typewriters and Kevin (nurse) agree ot consider this a preliminary assessment and that client should be reevaluated in the morning when completely sober and rested. Client is agreeable at this time. Resources Reos[employer]ces reviewed and given:: 988, Crisis Bed, [facility] (Front Porch ) and Other (Carlo Summers, Medication Provider ) Plan/Disposition Recommended Disposition: Other (This is consider preliminary assessment. Reevalute after patient rest and SHIRLEY is 0.00 in the morning to check mental status and see if patient is able to agree to safety plan fully. At this time, he demonstrates back and forth thought process on treatment. ). Plan: The plan is to have client remain in ED overnight and to have him reach a SHIRLEY of .00. Although client is technically medically cleared, due to his wavering thought process on next steps, this functional tester typewriters and Kevin (nurse) agree ot consider this a preliminary assessment and that client should be reevaluated in the morning when completely sober and rested. Client is agreeable at this time. Reports/communication Outcome discussed with: ED/Personnel (Nurse Maritza)
--- NOTE | 2025-01-06 09:58 | CMSP_ITS ---
Date of service: 01/06/25 Time of Service: 09:58 Care Management Safety Plan Status Status: Voluntary Reason for Wait Reason for Wait: Assessment/Screening (second screening to occur this morning) Safety Plan Safety Plan: VOLUNTARY FOR INPATIENT PSYCHIATRIC STABILIZATION.? Patient is appropriate in all interactions since arriving at [facility]; Pt has demonstrated appropriate coping and communication skills, has articulated his or her needs and concerns and is fully engaged during staff interactions. Safety plan has been established with patient, and care team, to adhere to patient goals, identify restrictions based on behavioral status, address nutrition, and determine allowed personal belongings, tools for hygiene and personal care. Determine level of activity including ambulation, level of supervision, visitors, and determine privileges based on behaviors and level of engagement by pt. VOLUNTARY SAFETY PLAN: 1. Will remain on suicide precautions, in paper clothes 2. Will remain in Zone B under direct supervision of one-on-one staff at all times provided by [employer]; LARRY, DRILL PRESS OPERATOR network professional. 3. May have paper cups, plates, finger foods as well as a cardboard spoon with which to eat meals. 4. Follow [facility] Management of the Admitted Behavioral Health Patient policy. 5. Shower available in Zone B without restriction. 6. Personal belongings-soft items permitted at RN discretion. 7. Visitors-none at this time. 8. Activities: soft cart items, hospital tablets (Netflix/Patoka+/music) approved per RN discretion. 9.? Bathroom available in Zone B without restriction. 10. Phone: limited to [facility] cordless phone at RN discretion. Due to VOLUNTARY status, if patient wishes to leave [facility], staff will contact [facility] Crisis Screener ([phone]) and Qu[employer]er ([phone]) as soon as possible. In the event of elopement, notify [facility] Police ([phone]).
[2025-01-06 11:13] VITALS: BP 99/58; PULSE 75; RESP 18; TEMP 36.7; O2SAT 96
--- NOTE | 2025-01-06 13:22 | W.EDPROG ---
Date of service: 01/06/25 Time of Service: 08:00 Medical Decision Making 19-year-old male with suicidal ideation. Awaiting reevaluation. Patient was seen by mental health. He has had decreased suicidal ideation. Apparently had recent discharge from [place] with prescription for Abilify. He did not get a refill when the medication ran out. He has stressful living situation currently. He is agreeable to placement at a care bed. Abilify will be restarted. Quality:SDOH Health Related Social Needs: Health related social needs housing instability, housed, with risk of homelessness (Z59.811), food insecurity (Z59.41), transportation insecurity (Z59.82), material hardship(utilities) (Z59.12), problems related to housing/economic circumstances (Z59.89), problems finding work (Z56.9), problems with daily activities (Z73.9), feeling lonely/isolated (Z60.8) Discharge Plan Discharge Details Chief Complaint: PsychEval Clinical Impression: Suicidal ideation, Hypothyroidism Primary Care Provider: Lindsay Hong ED Provider: Mere Kern Home Meds and New Rx's Prescriptions: No Action aripiprazole [Abilify] 20 mg tablet 20 mg PO QHS melatonin 3 mg tablet 6 mg PO QHS cholecalciferol (vitamin D3) 25 mcg (1,000 unit) capsule 25 mcg PO DAILY
--- NOTE | 2025-01-06 16:06 | ED.PROG_ITS ---
Date of service: 01/06/25 Time of Service: 16:06 Medical Decision Making Patient seeking voluntary placement for thoughts of self-harm, no reported issues on prior shift and no new acute complaints. Will continue to monitor until safe disposition found Quality:SDOH Health Related Social Needs: Health related social needs housing instability, house d, with risk of homelessness (Z59.811), food insecurity (Z59.41), transportation insecurity (Z59.82), material hardship(utilities) (Z59.12), problems related to housing/economic circumstances (Z59.89), problems finding work (Z56.9), problems with daily activities (Z73.9), feeling lonely/isolated (Z60.8) Discharge Plan Discharge Details Chief Complaint: PsychEval Clinical Impression: Suicidal ideation, Hypothyroidism Primary Care Provider: Lindsay Hong ED Provider: Kieran Mtz Home Meds and New Rx's Prescriptions: No Action aripiprazole [Abilify] 20 mg tablet 20 mg PO QHS melatonin 3 mg tablet 6 mg PO QHS cholecalciferol (vitamin D3) 25 mcg (1,000 unit) capsule 25 mcg PO DAILY
--- NOTE | 2025-01-06 16:12 | CMPROGNOTE_ITS ---
Date of service: 01/06/25 Time of Service: 12:00 Care Management Progress Note Progress Note Text Progress Note Text: CM met with zone B RN, HS worker, and ED physician earlier today. It was felt among staff that Jesús would best benefit from some time at the [facility] Care Bed. He will be set up with therapy, Case Management and medication management. Referral was placed. CM had a call from the Care retail operations manager later in the day. Jesús will have a place at the Care Bed tomorrow. Zone B RN and RN supervisor case loading were notified by CM. MH Services (Omit if N/A) Current MH Services: [facility] Referred to Internal [facility] (ED embedded) business case analyst?: Yes Status Status: Voluntary Reason for Wait: Community Placement (Care Bed) Social Determinants of Health Screening Social Determinants of Health last assessed: 01/06/25 Will the Patient Participate in the Screening?: Yes Do you worry about having a steady place to live?: no Problems where you live: no known problems In the past 12 months, have you had to go without electric, gas, oil or water in your home?: no Have you or anyone in your house had to go without enough food to eat?: no Has lack of transportation kept you from medical appointments or from doing things needed for daily living?: no Has anyone in your life made you feel unsafe or unsupported?: no How hard is it for you to pay for the very basics like food, housing, medical care, and heating? Would you say it is:: Not hard at all Do you want help finding or keeping work or a job?: I do not need or want help If for any reason you need help with day-to-day activities such as bathing, p reparing meals, shopping, managing finances, etc., do you get the help you need?: I don?t need any help How often do you feel lonely or isolated from those around you?: Never Do you speak a language other than Burmese at home?: No Does the patient want assistance with any of the above?: No Health Related Social Needs Health related social needs: food insecurity (Z59.41)
[2025-01-06] MEDS: ARIPiprazole 5 MG TAB 20 MG PO (21:25)
[2025-01-06] MEDS: Melatonin 3 MG TAB 6 MG PO (21:25)
--- NOTE | 2025-01-07 06:29 | W.EDPROG ---
Date of service: 01/07/25 Time of Service: 06:29 Medical Decision Making Patient remains in ED seeking voluntary admission for suicidal ideation. No issues overnight. Probable discharge to care bed later today. Quality:SDOH Health Related Social Needs: Health related social needs food insecurity (Z59.41) Discharge Plan Discharge Details Chief Complaint: PsychEval Clinical Impression: Suicidal ideation Primary Care Provider: Lindsay Hong ED Provider: Kobi See [place] and New Rx's Prescriptions: No Action aripiprazole [Abilify] 20 mg tablet 20 mg PO QHS melatonin 3 mg tablet 6 mg PO QHS cholecalciferol (vitamin D3) 25 mcg (1,000 unit) capsule 25 mcg PO DAILY
[2025-01-07 07:51] VITALS: BP 113/70; PULSE 85; RESP 21; TEMP 35.9; O2SAT 97
[2025-01-07] MEDS: Cholecalciferol (Vitamin D3) 1,000 UNIT TAB 1000 UNITS PO (09:22)
--- NOTE | 2025-01-07 11:14 | W.EDPROG ---
Date of service: 01/07/25 Time of Service: 11:14 Medical Decision Making Care signed out by Dr. See, please see his documentation regarding prior ED course. Plan at signout was to determine safe disposition. I spoke with [facility] crisis screener who feels that patient is safe for discharge to care bed. Patient agreeable with this plan. Patient to be discharged to crisis care bed. Usual and customary discharge instructions were reviewed. Quality:SDOH Health Related Social Needs: Health related social needs food insecurity (Z59.41) Discharge Plan Disposition Patient Disposition: Home Condition: Stable Discharge Details Clinical Impression: Suicidal ideation Primary Care Provider: Lindsay Hong ED Provider: David Carranza Home Meds and New Rx's Prescriptions: Continued aripiprazole [Abilify] 20 mg tablet 20 mg PO QHS melatonin 3 mg tablet 6 mg PO QHS cholecalciferol (vitamin D3) 25 mcg (1,000 unit) capsule 25 mcg PO DAILY Discharge Instructions Instructions: Suicide prevention Additional Instructions: Discharge plan is for you to go to the crisis care bed for respite. Please follow-up with your primary care physician. Please follow-up with [facility] for psychiatric care. Return to the emergency department immediately for any worsening or new concerning symptoms. Referrals: [facility] [Outside] Lindsay Hong [Primary Care Provider] - Discharge Data Discharge Date/Time-TO BE ENTERED AT DEPARTURE: 01/07/25 12:37
--- NOTE | 2025-01-07 11:33 | PDOC.CMDIS ---
Date of service: 01/07/25 Time of Service: 11:33 LACE Index Scoring Tool Questions: Length of Stay (in days): 2 Was the patient admitted via the E.D.?: Yes E.D. Visits: 2 Answers: Total Score: 7 Risk of Readmission: Low Risk Care Management Discharge Plan Reason for Hospitalization: suicidal ideation Discharge Plan: Jesús will be discharged to the [facility] carebed today. He will be picked up by [facility] staff at 12:15 and transported to the care bed. He will receive therapy, a med provider, and med management. [facility] has been notified that Sherine Kelley was the T-doc the night of Jesús's admission and have been given his demographic information. SDOH Health Related Social Needs: Health related social needs food insecurity (Z59.41) MH Services (Omit if N/A) Current MH Services: [facility] (being transferred to the CareBed) Referred to Internal [facility] (ED embedded) telephonic case manager?: Yes Disposition Disposition: Other ([facility] Care Bed) Transport via of: Other ([facility] staff)
--- NOTE | 2025-01-07 13:33 | PDOC.MHCN ---
Date of service: 01/06/25 Time of Service: 11:00 PHQ-9 Over the last 2 weeks, how often have you been bothered by any of the following problems? 1. Little interest or pleasure in doing things: more than half the days 2. Feeling down, depressed, or hopeless: nearly every day 3. Trouble falling or staying asleep, or sleeping too much: more than half the days 4. Feeling tired or having little energy: more than half the days 5. Poor appetite or overeating: not at all 6. Feeling bad about yourself - or that you are a failure or have let yourself and your family down: nearly every day 7. Trouble concentrating on things, such as reading the newspaper or watching television: more than half the days 8. Moving or speaking so slowly that other people could have noticed? - Or the opposite - being so fidgety or restless that you have been moving around a lot more than usual: several days 9. Thoughts that you would be better off or of hurting yourself in some way: more than half the days Total score: 17 If you checked off any problems, how difficult have these problems made it for you to do your work, take care of things at home, or get along with other people?: very difficult Source: Developed by Drs. Koib Joseph, Meredith Curtis, Grabiel Richards and colleagues, with an educational lakshmi from [employer]. Suicide Severity Rate CSSRS Have you wished you were or wished you could go to sleep and not wake up?: Yes Have you actually had any thoughts of killing yourself?: Yes CSSRS2 Have you been thinking about how you might do this?: Yes Have you had these thoughts and had some intention of acting on them?: Yes Have you started to work out or worked out the details of how to kill yourself? Do you intend to carry out this plan?: Yes CSSRS3 Have you ever done anything, started to do anything or prepared to do anything to end your life?: Yes CSSRS4 Was this within the past three months?: Yes Screening Score Total Score: 8 Screening: Positive Mental Health Emergency Note Release [facility] release signed:: Yes Reason for Visit Client was brought in by PD due to SI statements while intoxicated. In the last 2 weeks has the pt presented for ES prior to today?: No Client Information Client is: Adult Outpatient and Children's Well Housed: Yes Non Suicidal Self Injury Current: Yes, Client wanted to put a nail gun to his head and shoot. History: yes, Client commented that he has thought about jumping off a bridge. Safety Risk/Harm to Self or Others Current Ideation to Harm Self or Others: Yes to self. Intent: yes, has intent. Plan: yes,has a plan. Risk: Does risk to harm exist?: yes. Access to means: No. Risk: Moderate Risk Duty to warn indicated: No Asssessment/Mental Status Appearance: Disheveled Attitude: Cooperative and Guarded Behavior: Unremarkable, Poor impulse control and Repetitive movements Speech: Normal and Hesitant Affect: Normal and Blunted Mood: Sad, Stressed, Depressed and Anxious Thought process: Unremarkable and Circumstational Hallucinations: No evidence Delusions: No evidence Attention: Unremarkable Perception: Not impaired Orientation: Fully orientated Memory: Intact Insight: Fair Judgement: Fair Neurovegetative Symptoms Sleep: Decrease Appetitie: Decrease Interests: Decrease Energy: Decrease Substance Use: Do you use nicotine?: Yes Have you used substances in the last 7 days?: No Additional Issues: Assaultive/Threatening Behavior: No Medical Concerns: No Client engaged in active self harm w/weapon: No Threatening to run away: No Child reported abuse/neglect: No Voluntarily presenting for services: No Domestic violence is a concern: No Extreme Psychosis or extreme behavior is present: No Impression Client is alert and oriented x4. Client presents with fair insight and judgment but observed to be in pre-contemplative stage with his current suicidal ideation. Although client identified plan and intent, when asked if he would act on it, he states I don't really know. This proposal writer notes client is technically still under the influence of alcohol at this time which may impair his judgment or thought process. Client did not want to go inpatient as he just came out December 07 and felt that it didn't help. Client was prescribed Abilify by [facility] and filled his prescription there, but he didn't refill when he ran out. This proposal writer suggested [facility] Care Bed and client was on board along with sending a referral for therapy. Resources Reosurces reviewed and given:: Crisis Bed and [facility] Plan/Disposition Recommended Disposition: Crisis bed, facility contacted. Status of Crisis Bed acceptance: Accepted/transfer pending and Therapy. Plan: Client will stay in Zone B until he is able to go to the care bed. Person reported agreement to plan: Yes Facilities contacted if Applicable Other: Other (Care Bed. ) accepted Reports/communication Outcome discussed with: ED/Personnel Final Disposition/Discharge Final accepting facility/transferred to: Care Bed/Crisis Bed
--- NOTE | 2025-01-07 13:43 | PDOC.MHPN2 ---
Date of service: 01/07/25 Time of Service: 11:00 Mental Health Emergency Note Release [facility] release signed:: Yes Reason for Visit Client is having chronic SI. In the last 2 weeks has the pt presented for ES prior to today?: No Client Information Client is: Adult Outpatient and Children's Well Housed: Yes Non Suicidal Self Injury Current: No History: yes, [place] has wanted to shoot himself in the head with a nail gun. Safety Risk/Harm to Self or Others Current Ideation to Harm Self or Others: No Risk: Does risk to harm exist?: yes. Access to means: No. Risk: Moderate Risk Duty to warn indicated: No Asssessment/Mental Status Appearance: Disheveled and Poor hygiene Attitude: Cooperative and Friendly Behavior: Unremarkable Speech: Normal Affect: Normal Mood: Depressed Thought process: Unremarkable Hallucinations: No evidence Delusions: No evidence Attention: Unremarkable Perception: Not impaired Orientation: Fully orientated Memory: Intact Insight: Fair Judgement: Fair Neurovegetative Symptoms Sleep: No change Appetitie: No change Interests: No change Energy: No change Substance Use: Do you use nicotine?: No Have you used substances in the last 7 days?: No Additional Issues: Assaultive/Threatening Behavior: No Medical Concerns: No Client engaged in active self harm w/weapon: No Threatening to run away: No Child reported abuse/neglect: No Voluntarily presenting for services: Yes Domestic violence is a concern: No Extreme Psychosis or extreme behavior is present: No Impression Client is in a different head space today as he was looking forward to going to the care bed to have assistance in get things in order. Client reports that he did not sleep well the two nights he was here. Client's appetite was up and he was ordering excessive amounts of food. Client reported 11/15, same as yesterday. Client is being transferred to the care bed at 12:15. Resources Reosurces reviewed and given:: Crisis Bed and HS Plan/Disposition Recommended Disposition: Crisis bed, facility contacted. Status of Crisis Bed acceptance: Transfer pending/bed availability and Therapy. Plan: Client is being transferred to Care Bed at 12:15pm today. Person reported agreement to plan: Yes Facilities contacted if Applicable Other: Other (Care Bed) accepted Transfer pending/bed Reports/communication Outcome discussed with: ED/Personnel
== END 2025-01-07 12:37 | disposition home or self-care (01) ==
PROVIDERS: Physician Assistant; Emergency Provider Student in an Organized Health Care Education/Training Program; PCP Internal Medicine
DX: R45.851 Suicidal ideations (principal); Z59.811 Housing instability, housed, with risk of homelessness; Z59.41 Food insecurity; Z59.82 Transportation insecurity; Z59.12 Inadequate housing utilities; Z59.89 Other problems related to housing and economic circumstances; Z56.9 Unspecified problems related to employment; Z73.9 Problem related to life management difficulty, unspecified; Z60.8 Other problems related to social environment; E03.9 Hypothyroidism, unspecified
CPT/HCPCS: 00123; 36415; 36416; 80053; 80307; 82962; 96127; 99285; 80320; 80329; 81003; 84439; 84443; 85025

== ENCOUNTER 2025-03-26 17:00 | Emergency (ER) | payer MEDICAID, SELFPAY ==
[2025-03-26 17:01] VITALS: BP 150/99; PULSE 75; RESP 16; TEMP 36.6; O2SAT 99
--- NOTE | 2025-03-26 17:12 | W.ED.GENAD ---
Discharge Plan Discharge Details Chief Complaint: PsychEval [facility] Provider: Christine Singh Home Meds and New Rx's Prescriptions: No Action aripiprazole [Abilify] 20 mg tablet 20 mg PO QHS melatonin 3 mg tablet 6 mg PO QHS cholecalciferol (vitamin D3) 25 mcg (1,000 unit) capsule 25 mcg PO DAILY HPI General Date/Time Provider Initiated Documentation: 03/26/25 17:05. HPI Narrative: Jesús is a 20 year old male who presents to the emergency department today for evaluation of HI. He was brought in by from [place] [employer] after making homicidal threats towards his mother, including threats of rape and killing her. [facility] has already evaluated patient in the field. He came voluntarily, says that he wanted to get help. Admits to history of SI and suicide attempt in the past, no recent self-harm behaviors or suicidal ideation today. Denies hallucinations. Reports he has recently been in good health, smoked marijuana yesterday, otherwise no drug or alcohol use. Went for a run today, says that made him cough and vomit from exertion, but otherwise has been well. Denies fever/chills, headaches, congestion, sore throat, cough, chest pain, change in p.o. intake, abdominal pain, change in bowel or bladder function. He does have a popped blister on his right heel from walking around barefoot. Has not been taking his medications as prescribed. Past medical history is significant for suicide attempt by antidepressant overdose. Physical exam reassuring. Jesús is alert and oriented, no acute distress, easily conversational. Easy work of breathing. Moving all extremities normally. Healing blister noted to the plantar aspect of the right heel, no surrounding erythema or drainage from wound concerning for infection. History and presentation consistent with homicidal ideation. Routine labs ordered. I independently interpreted the following tests: CBC notable for leukocytosis, white cell count 15.69; patient does not have any acute complaints concerning for bacterial infection, likely stress demargination. CMP reassuring, only slightly elevated LFTs. TSH unremarkable. UA consistent with mild dehydration, specific gravity greater than 1030 with 300 protein. ASA, EtOH, APAP, tox screen negative. THC positive, consistent with known marijuana use. Patient medically cleared for mental health evaluation. Handoff report given to Dr. See, overnight attending. Related Data Home Medications ?Medication ?Instructions ?Recorded ?Confirmed aripiprazole 20 mg tablet (Abilify) 20 mg PO QHS 01/06/25 03/26/25 cholecalciferol (vitamin D3) 25 25 mcg PO DAILY 01/06/25 03/26/25 mcg (1,000 unit) capsule melatonin 3 mg tablet 6 mg PO QHS 01/06/25 03/26/25 Allergies Allergy/AdvReac Type Severity Reaction Status Date / Time No Known Allergies Allergy Verified 03/26/25 17:05 General Stated Complaint: PsychEval MOY: 2 Exam Const General: cooperative, healthy appearing, comfortable, no acute distress, well developed and well groomed Nutritional Appearance: average body habitus and well nourished Orientation: alert and oriented x3 Resp Effort & Inspection: normal respiratory effort and able to speak in complete sentences Skin Lesions: lesion noted (healing blister on R heel) Rashes: no rashes Neuro General: patient alert, patient oriented x3, gait normal, tone normal and moves all extremities Cognition: normal cognition Speech: speech normal Gait: normal gait Motor: muscle tone normal throughout Psych Appearance: grossly normal Speech and Movement: speech and movement normal Mood: congruent mood Affect: normal affect Attitude: cooperative Thought Content: homicidality Course Vital Signs Vital signs: Vital Signs Temperature 36.6 C 03/26/25 17:01 Pulse 75 03/26/25 17:01 Respiratory Rate 16 03/26/25 17:01 Blood Pressure 150/99 H 03/26/25 17:01 Pulse Oximetry 99 03/26/25 17:01 Temperature 36.6 C 03/26/25 17:01 Pulse 75 03/26/25 17:01 Respiratory Rate 16 03/26/25 17:01 Blood Pressure 150/99 H 03/26/25 17:01 Blood Pressure Position Sitting 03/26/25 17:01 Pulse Oximetry 99 03/26/25 17:01 Oxygen Delivery Method Room Air 03/26/25 17:01 Oxygen Flow Rate 0 03/26/25 17:01 Pain Level 3 03/26/25 17:01 Comment blister on right foot causing ankle pain due to compensating 03/26/25 17:01 Medical Decision Making Quality:SDOH Health Related Social Needs: Health related social needs food insecurity PFSH All Active Problems (Updated 01/07/25 @ 06:30 by Kobi See MD) Overdose of sertraline (Acute) Depression (Chronic) Suicide attempt (Acute) Suicidal ideation (Acute) Social History Smoking/Tobacco Use Status: Never Smoking risk assessment performed?: Yes Alcohol Intake: never Drug use: Occasionally Substance use type: former substance user and marijuana Housing: house Do you feel safe at home: Yes Do you feel safe in your relationship?: Yes
[2025-03-26 17:26] LABS: Abs Immature Grans 0.06 10^3/uL (0.0-0.06); Absolute Basophil Count 0.08 10^3/uL (0.0-0.2); Absolute Eosinophil Count 0.06 10^3/uL (0.0-0.7); Absolute Lymphocyte Count 1.65 10^3/uL (1.2-3.4); Absolute Monocyte Count 0.77 10^3/uL (0.1-0.8); Absolute Neutrophil Count 13.07 10^3/uL (1.2-6.7); Basophils % 0.5 %; Eosinophils % 0.4 %; HCT 43.9 % (40.0-50.0); HGB 15.1 g/dL (13.5-17.5); Immature Grans % 0.4 %; Lymphocytes % 10.5 %; MCH 31.1 pg (27.0-33.0); MCHC 34.4 % (32.0-36.0); MCV 90 fL (80-95); MPV 9.6 fL (8.0-11.0); Monocytes % 4.9 %; Neutrophils % 83.3 %; Platelet Count 291 10^3/uL (130-400); RBC 4.86 10^6/uL (4.36-5.78); RDW 12.6 % (11.8-14.1); RDW-SD 41.1 fL; WBC 15.69 10^3/uL (4.4-10.8)
[2025-03-26 17:29] LABS: Bilirubin Negative (Negative); Blood Negative (Negative); Clarity Clear (Clear); Glucose Negative (Negative); Ketones 15 mg/dL (Negative); Leukocyte Esterase Negative (Negative); Nitrite Negative (Negative); Specific Gravity >= 1.030 (1.005-1.025); pH 5.5 (5-8)
[2025-03-26 17:36] LABS: Bacteria Negative HPF (Negative); C & S Indicated? No; Casts 3-5 Hyaline LPF (Negative); Crystals Negative HPF (Negative); Epithelial Cells Negative HPF (Negative); Mucus Heavy (Negative); RBC 0-2 HPF (0-2)
[2025-03-26 17:46] LABS: *AMPHETAMINES SCREEN URINE Negative (Negative); *BARBITURATES SCREEN URINE Negative (Negative); *BENZODIAZEPINES SCREEN URINE Negative (Negative); Cannabinoids THC Positive (Negative); Cocaine Screen,Urine Negative (Negative); METHADONE URINE SCREEN Negative (Negative); OPIATES URINE SCREEN Negative (Negative); Tricyclic Antidepressants Negative (Negative)
[2025-03-26 17:48] LABS: Acetaminophen < 2 ug/mL (10-30); Salicylate < 2.8 mg/dL (<2.8)
[2025-03-26 17:50] LABS: ALT 44 U/L (16-63); AST 59 U/L (15-37); Albumin 4.8 g/dL (3.4-5.0); Alkaline Phosphatase 131 U/L (46-116); Anion Gap 10.5 mmol/L (3-11); BUN 11 mg/dL (7-18); Bilirubin, Total 1.1 mg/dL (0.2-1.0); CO2 26.5 mmol/L (21.0-32.0); CREATININE 0.9 mg/dL (0.70-1.30); Calcium 9.3 mg/dL (8.5-10.1); Chloride 102 mmol/L (98-107); Estimated GFR 124.61 (mL/min/1.73m2); Glucose 97 mg/dL (74-106); Potassium 3.9 mmol/L (3.5-5.1); Sodium 139 mmol/L (136-145); TSH (W/Ref FT4) 2.29 uIU/mL (0.36-3.74); Total Protein 8.7 g/dL (6.4-8.2)
[2025-03-26 17:59] LABS: ETHANOL BLOOD < 3.0 mg/dL (<10)
--- NOTE | 2025-03-26 18:51 | PDOC.MHCN ---
Date of service: 03/26/25 Time of Service: 16:20 PHQ-9 Over the last 2 weeks, how often have you been bothered by any of the following problems? 1. Little interest or pleasure in doing things: more than half the days 2. Feeling down, depressed, or hopeless: more than half the days 3. Trouble falling or staying asleep, or sleeping too much: more than half the days 4. Feeling tired or having little energy: not at all 5. Poor appetite or overeating: not at all 6. Feeling bad about yourself - or that you are a failure or have let yourself and your family down: nearly every day 7. Trouble concentrating on things, such as reading the newspaper or watching television: more than half the days 8. Moving or speaking so slowly that other people could have noticed? - Or the opposite - being so fidgety or restless that you have been moving around a lot more than usual: not at all 9. Thoughts that you would be better off or of hurting yourself in some way: several days Total score: 12 If you checked off any problems, how difficult have these problems made it for you to do your work, take care of things at home, or get along with other people?: very difficult Source: Developed by Drs. Kobi Joseph, Meredith Curtis, Grabiel Richards and colleagues, with an educational lakshmi from [employer]. Suicide Severity Rate CSSRS Have you wished you were or wished you could go to sleep and not wake up?: Yes Have you actually had any thoughts of killing yourself?: Yes CSSRS2 Have you been thinking about how you might do this?: Yes Have you had these thoughts and had some intention of acting on them?: Yes Have you started to work out or worked out the details of how to kill yourself? Do you intend to carry out this plan?: Yes CSSRS3 Have you ever done anything, started to do anything or prepared to do anything to end your life?: Yes CSSRS4 Was this within the past three months?: Yes Screening Score Total Score: 8 Screening: Positive Mental Health Emergency Note Release [facility] release signed:: Yes Reason for Visit The clients mother called the [facility] reporting concerning text from the client threatening to kill her. The [facility] asked for MH to outreach to the client via phone. This telegraphic typewriter repairer made contact with the client and offered a mobile crisis assessment. The client accepted. The client is known to [facility] and is served by the children emergency program. The client is known to emergency services and was last assessed by emergency services on 01/06/25. Per self report of the client, the client has been hospitalized at the age of 15 at [facility], in 2021 at [facility] and most recently at [facility] in December of 2024 due to SI with a plan. In the last 2 weeks has the pt presented for ES prior to today?: Yes, presented at Client Information Well Housed: No,status: Homeless Unstable housing Non Suicidal Self Injury Current: No History: No Safety Risk/Harm to Self or Others Current Ideation to Harm Self or Others: Yes to self. Intent: yes, has intent. Plan: yes,has a plan. History of suicide attempt: yes,history of suicide attempt reported. Details of previous suicide attempt: The client reported to attempt to by suicide by overdosing 3 years ago. and to others. Intent: yes, has intent to harm others Plan: yes,has a plan. History of becoming violent with another person(any age): yes,history of violence with others. Risk: Does risk to harm exist?: yes. Risk: High Risk Duty to warn indicated: No Asssessment/Mental Status Appearance: Disheveled Attitude: Cooperative and Friendly Behavior: Agitated Speech: Normal Affect: Labile Mood: Elevated Thought process: Goal directed Hallucinations: No Delusions: No Attention: Unremarkable Perception: Not impaired Orientation: Fully orientated Memory: Intact Insight: Poor Judgement: Poor Neurovegetative Symptoms Sleep: Decrease Appetitie: Decrease Interests: Decrease Energy: No change Libido: Not applicable Additional Issues: Assaultive/Threatening Behavior: Yes Medical Concerns: No Client engaged in active self harm w/weapon: No Threatening to run away: No Child reported abuse/neglect: No Voluntarily presenting for services: Yes Domestic violence is a concern: No Extreme Psychosis or extreme behavior is present: No Impression The client is a 20 year old biological male who is reported to be living in a shed on [address] in [place], [place] due to not being able to reside in the home anymore. The client presents in a disheveled appearance wearing a blue t-shirt and blue jeans. Affect appears to be labile. Client is cooperative and friendly with this clinician; they report their mood as currently fine, but elevated earlier today. Thought process appears goal directed as they recognize the need for treatment. There are no delusions observed. The client denied auditory and visual hallucinations. Cognitive assessment reveals orientation to person, place and time. The [facility] outreached to mental reporting the client had sent concerning messages to his mother about wanting to kill her. The [facility] asked for mental health to outreach to the client. This clinician outreached to the client and asked him how he has doing and the client states I can't stop thinking about wanting to kill people. This clinician asked if the client was interest in getting help for his mental health, and the client stated he did not want to go to the hospital. This clinician offered a mobile crisis and response and the client agreed. This clinician coordinated with the [facility] for a co-response. Upon arrival to the [facility] in [place] where the client reported he was, the client walked over to meet [facility] clinician's [place] along with the P tromanoj. This telegraphic typewriter repairer asked the client more about his thoughts of wanting to kill people. The client discloses that he is just having thoughts of wanting to kill his mother. This clinician asked if the client had a plan to kill his mother and the client stated yes but it was graphic. The client asked if this clinician wanted to know as it was graphic, and this clinician said yes. The client states I will just show you and is seen laughing. The client shows texts to his mother stating I want to rip off your head and have sex with it, I want to rip out my our fucking spine and fuck you with it in your gross disgusting fucking pussy, I hate you so much, I want to rape you and fucking kill you, no I lied, I want to kill you then rape you. The client was asked on his level of intent with these plans and the client reported it to be a 5/10. The client was asked if he had any thoughts of wanting to harm himself. The client reported yes, but does not have a current plan. The client shared that a couple of days ago he had a plan to get drunk and hang himself from a tree. The client scored a 12/27 on the PHQ-9 and a 6/6 on the CSSRS. The client was agreeable to go to [facility] ED via [facility] troopers to await voluntary impatient treatment. Plan/Disposition Recommended Disposition: Hospitalization facilities contacted. Plan: The client will remain at the [facility] Zone B until placement is secured. The client will receive daily assessments by emergency services until placed. Reports/communication Outcome discussed with: ED/Personnel
--- NOTE | 2025-03-26 20:51 | NUR.NOTE ---
Becca [facility] called, reported to her that pt is now medically cleared and in zone B. Becca states that they have seen the pt and will come see him again tomorrow. Reports that if pt wants to leave, they want to be contacted. notified :
[2025-03-27 08:29] VITALS: BP 134/90; PULSE 75; RESP 17; TEMP 36.4; O2SAT 99
[2025-03-27] MEDS: Cholecalciferol (Vitamin D3) 1,000 UNIT TAB 1000 UNITS PO (09:20)
--- NOTE | 2025-03-27 09:47 | ED.PSYCHBOAR ---
Date of service: 03/27/25 Time of Service: 09:48 Psychiatric Border Handoff Update Brief Story: Homicidal male, here voluntarily looking for help. History of suicidal ideations and attempt, history of depression, Abilify order was started, as well as home meds. Pending placement at this time. Medically clear. No issues throughout shift. Status: voluntary Able to leave: would need physician/CHRISTINE and crisis evaluation prior to leaving Behavioral Concerns: Done so far. Potential Disposition: Pending placement Medical Concerns: None, patient medically cleared during evening shift. Mediation Reconciliation performed: Yes Code Status ordered: Yes Diet ordered: Yes Discharge Plan Discharge Details Chief Complaint: PsychEval Clinical Impression: Homicidal ideation Primary Care Provider: Lindsay Hong ED Provider: Des Bang Home Meds and New Rx's Prescriptions: No Action aripiprazole [Abilify] 20 mg tablet 20 mg PO QHS melatonin 3 mg tablet 6 mg PO QHS cholecalciferol (vitamin D3) 25 mcg (1,000 unit) capsule 25 mcg PO DAILY
--- NOTE | 2025-03-27 12:29 | MHPN_ITS ---
Date of service: 03/27/25 Time of Service: 10:00 Mental Health Emergency Note Release [facility] release signed:: Yes Reason for Visit The client presented to [facility] following mobile crisis assessment that took place in [place]. The client presented with SI with no current plan and HI with plan and intent. The client is known to [facility] and is served by the children emergency program. The client is known to emergency services and was last assessed by emergency services on 01/06/25. Per self report of the client, the client has been hospitalized at the age of 15 at [facility], in 2021 at [facility] and most recently at [facility] in December of 2024 due to SI with a plan. In the last 2 weeks has the pt presented for ES prior to today?: Yes, presented at Client Information Well Housed: No,status: Not homeless, Unstable housing Non Suicidal Self Injury Current: No History: No Safety Risk/Harm to Self or Others Current Ideation to Harm Self or Others: No Risk: Does risk to harm exist?: yes. Access to means: No. Risk: High Risk Duty to warn indicated: No Asssessment/Mental Status Appearance: Unremarkable Attitude: Guarded and Friendly Behavior: Unremarkable Speech: Normal Affect: Labile and Cogruent with mood Mood: Other (Terrible) Thought process: Loose associations Hallucinations: No Delusions: No Attention: Unremarkable Perception: Not impaired Orientation: Fully orientated Memory: Intact Insight: Poor Judgement: Poor Neurovegetative Symptoms Sleep: Decrease Appetitie: Increase Interests: No change Energy: No change Libido: Not applicable Additional Issues: Assaultive/Threatening Behavior: Yes Medical Concerns: No Client engaged in active self harm w/weapon: No Threatening to run away: No Child reported abuse/neglect: No Voluntarily presenting for services: Yes Domestic violence is a concern: No Extreme Psychosis or extreme behavior is present: No Impression The client is a 20 year old biological male who is reported to be living in a shed on [address] in [place], [place] due to not being able to reside in the home anymore. The client presents in [facility] clothing in Zone B of [facility]. Affect appears to be labile, but congruent with mood. Client is cooperative and guarded with this clinician; they report their mood as currently terrible. Thought process appears as loose associations. There are no delusions observed. The client denied auditory and visual hallucinations. Cognitive assessment reveals orientation to person, place and time. The client reports not sleeping well, but eating at the hospital. When asked about hallucinations the client stated he was unsure if he should be honest. When questioned further on that the client states the schmidt of being want me to lie and tell people I am crazy and that their are entities higher than himself. The client states he also wants to lie because he does not know the end game. The client reports he feels he is being screwed with by several people in the . The client states he feels he is in the middle of some game for people who are entering some special part of the . The client states he feels he was doing okay in the game until yesterday and that he might of lost when he came to [facility], but that he also feels it was the right choice. The client denied SI, HI and NSSI to this clinician. The client declined to give further details around intent and plan around SI and HI. The client states he is thinking of what he might do when he gets out of here, and declined to share those thoughts. Plan/Disposition Recommended Disposition: Hospitalization facilities contacted. Plan: The client will remain in the [facility] Zone B to await voluntary placement. The client will be assessed daily by emergency services until placed Reports/communication Outcome discussed with: ED/Personnel
--- NOTE | 2025-03-27 16:01 | CMSP_ITS ---
Date of service: 03/27/25 Time of Service: 16:01 Care Management Safety Plan Status Status: Voluntary Reason for Wait Reason for Wait: Inpatient Admission Safety Plan Safety Plan: VOLUNTARY FOR INPATIENT PSYCHIATRIC STABILIZATION.? Patient is appropriate in all interactions since arriving at [facility]; Pt has demonstrated appropriate coping and communication skills, has articulated his needs and concerns and is fully engaged during staff interactions. Safety plan has been established with patient, and care team, to adhere to patient goals, identify restrictions based on behavioral status, address nutrition, and determine allowed personal belongings, tools for hygiene and personal care. Determine level of activity including ambulation, level of supervision, visitors, and determine privileges based on behaviors and level of engagement by pt. VOLUNTARY SAFETY PLAN: 1. Will remain on suicide precautions, in paper clothes 2. Will remain in Zone B under direct supervision of one-on-one staff at all times provided by [facility]; LARRY, SECURITY SYSTEMS MANAGER pediatric orthodontist. 3. May have paper cups, plates, finger foods as well as a cardboard spoon with which to eat meals. 4. Follow [facility] Management of the Admitted Behavioral Health Patient policy. 5. Shower available in Zone B without restriction. 6. Personal belongings-soft items permitted at RN discretion. 7. Visitors-none at this time. 8. Activities: soft cart items, hospital tablets (Netflix/Estelline+/music) approved per RN discretion. 9.? Bathroom available in Zone B without restriction. 10. Phone: limited to [facility] cordless phone at RN discretion. Due to VOLUNTARY status, if patient wishes to leave [facility], staff will contact [facility] Crisis Screener ([phone]) and Skill Labor ([phone]) as soon as possible. In the event of elopement, notify [facility] Police ([phone]). Patient is currently voluntarily at [facility] and seeking inpatient admission when a bed becomes available. [facility] Frontline Fire Assistant will continue seeking placement. Please contact the Skill Labor ([phone]) and [facility] Fire Assistant ([phone]) for any needed changes in the Safety Plan. Safety plan has been provided to interdepartmental care team.
--- NOTE | 2025-03-27 16:01 | PDOC.CMSAFE ---
Date of service: 03/27/25 Time of Service: 16:01 Care Management Safety Plan Status Status: Voluntary Reason for Wait Reason for Wait: Inpatient Admission Safety Plan Safety Plan: VOLUNTARY FOR INPATIENT PSYCHIATRIC STABILIZATION.? Patient is appropriate in all interactions since arriving at [facility]; Pt has demonstrated appropriate coping and communication skills, has articulated his needs and concerns and is fully engaged during staff interactions. Safety plan has been established with patient, and care team, to adhere to patient goals, identify restrictions based on behavioral status, address nutrition, and determine allowed personal belongings, tools for hygiene and personal care. Determine level of activity including ambulation, level of supervision, visitors, and determine privileges based on behaviors and level of engagement by pt. VOLUNTARY SAFETY PLAN: 1. Will remain on suicide precautions, in paper clothes 2. Will remain in Zone B under direct supervision of one-on-one staff at all times provided by [employer]; LARRY, DIRECTOR SYSTEMS senior cyber intelligence analyst. 3. May have paper cups, plates, finger foods as well as a cardboard spoon with which to eat meals. 4. Follow [facility] Management of the Admitted Behavioral Health Patient policy. 5. Shower available in Zone B without restriction. 6. Personal belongings-soft items permitted at RN discretion. 7. Visitors-none at this time. 8. Activities: soft cart items, hospital tablets (Netflix/Reno+/music) approved per RN discretion. 9.? Bathroom available in Zone B without restriction. 10. Phone: limited to [facility] cordless phone at RN discretion. Due to VOLUNTARY status, if patient wishes to leave [facility], staff will contact [facility] Crisis Screener ([phone]) and Medical Accounts Receivable Specialist ([phone]) as soon as possible. In the event of elopement, notify [facility] Police ([phone]). Patient is currently voluntarily at [facility] and seeking inpatient admission when a bed becomes available. [facility] Frontline Coil Machine Supervisor will continue seeking placement. Please contact the Medical Accounts Receivable Specialist ([phone]) and [facility] Coil Machine Supervisor ([phone]) for any needed changes in the Safety Plan. Safety plan has been provided to interdepartmental care team.
--- NOTE | 2025-03-27 16:27 | W.EDPROG ---
Date of service: 03/27/25 Time of Service: 16:30 Medical Decision Making Assumed care of patient. Awaiting psychiatric placement. No new issues identified. Quality:SDOH Health Related Social Needs: Health related social needs food insecurity Discharge Plan Discharge Details Chief Complaint: PsychEval Clinical Impression: Homicidal ideation Primary Care Provider: Lindsay Hong ED Provider: Mere Kern Meds and New Rx's Prescriptions: No Action aripiprazole [Abilify] 20 mg tablet 20 mg PO QHS melatonin 3 mg tablet 6 mg PO QHS cholecalciferol (vitamin D3) 25 mcg (1,000 unit) capsule 25 mcg PO DAILY
[2025-03-27] MEDS: ARIPiprazole 5 MG TAB 20 MG PO (20:07)
[2025-03-27] MEDS: Melatonin 3 MG TAB 6 MG PO (20:07)
--- NOTE | 2025-03-28 07:15 | ED.PROG1_ITS ---
Date of service: 03/28/25 Time of Service: 07:16 Psychiatric Border Handoff Update Brief Story: This is a 20-year-old male with homicidal ideation toward mother. Patient is voluntary but meets EE criteria. No issues during overnight. Status: voluntary Able to leave: would need physician/CHRISTINE and crisis evaluation prior to leaving Behavioral Concerns: No active issues Potential Disposition: Pending placement Barriers to Disposition: Awaiting response from referrals Medical Concerns: None Code Status ordered: Yes Diet ordered: Yes Future to do Items: Follow-up recommendations from [facility]. 11:35 AM I attended daily huddle on this patient with care management at [facility]. [facility] There is also a referral to [facility]. Patient has been denied by [facility]. Patient is to have no visits from his mother as she is reportedly triggering. 4:05 PM No active behavioral issues my shift. I signed patient out to Dr. Bang. Discharge Plan Discharge Details Chief Complaint: PsychEval Clinical Impression: Homicidal ideation Primary Care Provider: Lindsay Hong ED Provider: Pedro Pacheco Home Meds and New Rx's Prescriptions: No Action aripiprazole [Abilify] 20 mg tablet 20 mg PO QHS melatonin 3 mg tablet 6 mg PO QHS cholecalciferol (vitamin D3) 25 mcg (1,000 unit) capsule 25 mcg PO DAILY
[2025-03-28] MEDS: Cholecalciferol (Vitamin D3) 1,000 UNIT TAB 1000 UNITS PO (07:54)
[2025-03-28 08:04] VITALS: BP 142/87; PULSE 94; RESP 18; O2SAT 98
--- NOTE | 2025-03-28 11:41 | CMSP_ITS ---
Date of service: 03/28/25 Time of Service: 11:41 Care Management Safety Plan Status Status: Voluntary Reason for Wait Reason for Wait: Inpatient Admission Safety Plan Safety Plan: VOLUNTARY FOR INPATIENT PSYCHIATRIC STABILIZATION.? Patient is appropriate in all interactions since arriving at [facility]; Pt has demonstrated appropriate coping and communication skills, has articulated his needs and concerns and is fully engaged during staff interactions. Safety plan has been established with patient, and care team, to adhere to patient goals, identify restrictions based on behavioral status, address nutrition, and determine allowed personal belongings, tools for hygiene and personal care. Determine level of activity including ambulation, level of supervision, visitors, and determine privileges based on behaviors and level of engagement by pt. VOLUNTARY SAFETY PLAN: 1. Will remain on suicide precautions, in paper clothes 2. Will remain in Zone B under direct supervision of one-on-one staff at all times provided by [employer]; LARRY, COLLAR RUNNER supervisor spring up. 3. May have paper cups, plates, finger foods as well as a cardboard spoon with which to eat meals. 4. Follow [facility] Management of the Admitted Behavioral Health Patient policy. 5. Shower available in Zone B without restriction. 6. Personal belongings-soft items permitted at RN discretion. 7. Visitors- No personal visitors at this time. Mom is not permitted to visit (RFA in place, by Mom). Professional support/counseling case managerGabriella- may visit. 8. Activities: soft cart items, hospital tablets (Netflix/Seward+/music) approved per RN discretion. 9.? Bathroom available in Zone B without restriction. 10. Phone: supportive phone calls permitted (no contact to be made to his mother)- limited to [facility] cordless phone at RN discretion. Due to VOLUNTARY status, if patient wishes to leave [facility], staff will contact [facility] Crisis Screener ([phone]) and Can Crimper ([phone]) as soon as possible. In the event of elopement, notify [facility] Police ([phone]). Patient is currently voluntarily at [facility] and seeking inpatient admission when a bed becomes available. [facility] Frontline Arch Support Maker will continue seeking placement. Please contact the Can Crimper ([phone]) and [facility] Arch Support Maker ([phone]) for any needed changes in the Safety Plan. Safety plan has been provided to interdepartmental care team.
--- NOTE | 2025-03-28 11:41 | PDOC.CMSAFE ---
Date of service: 03/28/25 Time of Service: 11:41 Care Management Safety Plan Status Status: Voluntary Reason for Wait Reason for Wait: Inpatient Admission Safety Plan Safety Plan: VOLUNTARY FOR INPATIENT PSYCHIATRIC STABILIZATION.? Patient is appropriate in all interactions since arriving at [facility]; Pt has demonstrated appropriate coping and communication skills, has articulated his needs and concerns and is fully engaged during staff interactions. Safety plan has been established with patient, and care team, to adhere to patient goals, identify restrictions based on behavioral status, address nutrition, and determine allowed personal belongings, tools for hygiene and personal care. Determine level of activity including ambulation, level of supervision, visitors, and determine privileges based on behaviors and level of engagement by pt. VOLUNTARY SAFETY PLAN: 1. Will remain on suicide precautions, in paper clothes 2. Will remain in Zone B under direct supervision of one-on-one staff at all times provided by [employer]; LARRY, SECURITY SYSTEM ENGINEER planishing press operator. 3. May have paper cups, plates, finger foods as well as a cardboard spoon with which to eat meals. 4. Follow [facility] Management of the Admitted Behavioral Health Patient policy. 5. Shower available in Zone B without restriction. 6. Personal belongings-soft items permitted at RN discretion. 7. Visitors- No personal visitors at this time. Mom is not permitted to visit (RFA in place, by Mom). Professional support/case management assistantGabriella- may visit. 8. Activities: soft cart items, hospital tablets (Netflix/[place]+/music) approved per RN discretion. 9.? Bathroom available in Zone B without restriction. 10. Phone: supportive phone calls permitted (no contact to be made to his mother)- limited to [facility] cordless phone at RN discretion. Due to VOLUNTARY status, if patient wishes to leave [facility], staff will contact [facility] Crisis Screener ([phone]) and Disease Case Manager ([phone]) as soon as possible. In the event of elopement, notify [facility] Police ([phone]). Patient is currently voluntarily at [facility] and seeking inpatient admission when a bed becomes available. [facility] Frontline System Software Programmer will continue seeking placement. Please contact the Disease Case Manager ([phone]) and [facility] System Software Programmer ([phone]) for any needed changes in the Safety Plan. Safety plan has been provided to interdepartmental care team.
--- NOTE | 2025-03-28 11:48 | PDOC.CMPRO ---
Date of service: 03/28/25 Time of Service: 11:48 Care Management Progress Note Progress Note Text Progress Note Text: CM huddled with [facility] and [facility] staff regarding Jesús's plan of care. Per report, Jesús's mother, Edith, has filed a RFA order against him; there should be no contact by phone or visitation between Jesús and his mother. This has been reflected on the safety plan. Per report, he has been making phone calls, which have appeared to go well; staff will screen phone calls going forward to ensure that he is not contacting his mother. Per [facility], Jesús has a employment evaluator/case manager, Gabriella, who may visit Jesús for continued care planning in the community. Jesús is currently voluntary, seeking inpatient psychiatric treatment. Referrals have been placed by [facility]; [facility] does not have a bed today, [facility] has not responded, and [facility] has declined the referral. Safety plan in place; CM will continue to follow. Social Determinants of Health Screening Will the Patient Participate in the Screening?: Unable to obtain
--- NOTE | 2025-03-28 12:45 | PDOC.MHPN2 ---
Date of service: 03/28/25 Time of Service: 12:46 Mental Health Emergency Note Release [facility] release signed:: Yes Reason for Visit Per [facility] Gaurang's note on 03.27.25, the clients mother called the VSP reporting concerning text from the client threatening to kill her. The VSP asked for MH to outreach to the client via phone. This fiction writer made contact with the client and offered a mobile crisis assessment. The client accepted. The client is known to [facility] and is served by the children emergency program. The client is known to emergency services and was last assessed by emergency services on 01/06/25. Per self report of the client, the client has been hospitalized at the age of 15 at [facility] (likely [facility]), in 2021 at [facility] and most recently at [facility] in December of 2024 due to SI with a plan. In the last 2 weeks has the pt presented for ES prior to today?: Unknown Impression The client is a 20-year-old, single, biological male who is reported to be living in a shed on [address] in [place], [place] due to not being able to reside in the home anymore. He is not allowed to reside at home due to his mother filing a RFA order on him last Friday. [facility] was unaware of this and allowed the mother to visit him yesterday. They will no longer allow visits as this puts the client at risk of violating that court order. The client stated he thought it was his sister that filed the RFA. The client was made aware of this as well and although he states he wants to see his mother she just needs to not be a bitch this can not be supported in this environment. Per report at his initial assessment to told ESC?s [place], he wanted to ?rip her spine out and rape her.? Additionally today he reported that he told his mother in a text he was going to decapitate her head. When he said this he showed no remorse and sat with a grin on his face. When he said this he showed no remorse and sat with a grin on his face. When asked about suicide he stated not yet today. The client presents with a strong body odor. He makes no eye contact. Other than inappropriate grinning he has a flat affect and blank eyes showing no remorse or empathy for his actions and how they affect others. Per his W[employer] SOLE LAYER when she triaged him upon arrival she offered him activities to preoccupy his time to which he declined. When asked what he enjoys doing when not in the hospital he stated very matter of factly I like to think about killing others. He reported poor sleep last night noting he tossed and turned all night. The client is still seeking a voluntary inpatient treatment facility. Plan/Disposition Recommended Disposition: Hospitalization facilities contacted. Plan: The client will remain at [facility] until placed. If he wants to leave an EE should be considered. Reports/communication Outcome discussed with: ED/Personnel
[2025-03-28 19:09] VITALS: BP 124/86; PULSE 90; RESP 16; TEMP 36.7; O2SAT 97
[2025-03-28] MEDS: Melatonin 3 MG TAB 6 MG PO (21:06)
[2025-03-28] MEDS: ARIPiprazole 5 MG TAB 20 MG PO (21:06)
--- NOTE | 2025-03-29 07:21 | ED.PSYCHBOAR ---
Date of service: 03/29/25 Time of Service: 07:21 Psychiatric Border Handoff Update Brief Story: This is a 20-year-old male with homicidal ideation toward mother. Patient is voluntary but meets EE criteria. No issues during overnight. Status: voluntary Able to leave: would need physician/CHRISTINE and crisis evaluation prior to leaving Behavioral Concerns: None Potential Disposition: Pending placement Barriers to Disposition: Awaiting placement Medical Concerns: None Code Status ordered: Yes Diet ordered: Yes Future to do Items: Follow-up recommendations from [facility] services. 9:53 AM I was in touch with Cassandra Garcia who called from the [facility]. She graciously agreed to accept the patient in transfer. 1:42 PM I signed transfer paperwork to have the patient transferred to the [facility]. 4:45 PM Patient will be transferred to the [facility] at 5 PM. Discharge Plan Disposition Patient Disposition: Psychiatric Hospital/Unit Specific Psychiatric Facility: [facility] Discharge Details Clinical Impression: Homicidal ideation Primary Care Provider: Lindsay Hong ED Provider: Pedro Pacheco Cromwell Meds and New Rx's Prescriptions: Continued aripiprazole [Abilify] 20 mg tablet 20 mg PO QHS melatonin 3 mg tablet 6 mg PO QHS cholecalciferol (vitamin D3) 25 mcg (1,000 unit) capsule 25 mcg PO DAILY Discharge Instructions Additional Instructions: You were seen in the emergency department for your homicidal ideation. You resumed your aripiprazole. He remains voluntary. You were transferred to the [facility].
[2025-03-29] MEDS: Cholecalciferol (Vitamin D3) 1,000 UNIT TAB 1000 UNITS PO (07:58)
[2025-03-29 08:02] VITALS: BP 127/85; PULSE 77; RESP 18; TEMP 36.2; O2SAT 95
--- NOTE | 2025-03-29 14:55 | CMPROGNOTE_ITS ---
Date of service: 03/29/25 Time of Service: 14:55 Care Management Progress Note Progress Note Text Progress Note Text: DENG huddled with [facility] and [facility] staff regarding Jesús's plan of care. Per RN, Jesús has been doing well today, and interacting appropriately. Per [facility], he was accepted at [facility] today. Transport was being arranged at that time. CM spoke to Jesús's mother who reached out to inform CM that she does not have an RFA on Jesús; his sister does, and she reported that it was going to be dropped. She stated that she feels it is important for Jesús to be able to talk to her, as she identified herself as a strong support for him. Per established safety plan, there will not be vistation or phone calls at this time. CM advised that she can provide the information about the RFA to Jesús's [facility] immigration case worker and/or [facility], and that the decision regarding communication at [facility] will be made between staff at and Jesús. Jesús was accepted to [facility] today, and transported this evening via [facility] (EMS) at approximately 17:00. Social Determinants of Health Screening Will the Patient Participate in the Screening?: Unable to obtain
== END 2025-03-29 17:14 ==
PROVIDERS: Nurse Practitioner Family; Emergency Provider Emergency Medicine; PCP Internal Medicine
DX: R45.850 Homicidal ideations (principal)
CPT/HCPCS: 00123; 80053; 80307; 96127; 99285; H0046; 80320; 80329; 81003; 81015; 84443; 85025